=== PATIENT | female | born 1995 | race Two or more races ===

== ENCOUNTER 2024-10-11 23:32 | Observation (INO) | payer OTHER ==
--- NOTE | 2024-10-12 01:36 | DVHDS2 ---
Physician Discharge Progress N Final Diagnosis: IUP at 20w 3days h/o preEclampsia 2017 h/o - section 2017 H/o Cholscystectomy 2021 Normal Blood Pressure Range Operations or Procedures: Operations or Procedures Ms Camargo, a 29yo G2,1001 with EDC of , EGA 20w 3d presents to the place and reports that she checked her BP at home and it was high 138/75. Feels movement, no contractions, no leakage of fluid, no vaginal bleeding, no vision changes or epigastric pain. She reports she has h/o preeclampsia and primary C- section in 2018. Receiving care in [facility]. Plan was for her to have an appointment scheduled with a [facility] doctor but has not received a call for the appointment. Last appointment with OB doctor was 10/07/24. Taking PNV and low dose aspirin. She was accompanied by her boy-friend O: VSS A&O x3, not in acute distress Respiration unlabored No CVA tenderness Abdomen palpate soft Extremities: no edema DTR +2/+2 Trace Proteinuria BP Trends as follows:118/59, 109/57, 101/54, 99/51, 101/50, 105/54mmHg FHR with Doppler:135bpm No contraction noted on monitor, none palpated nor felt by pt A: Normal Blood Pressure P: Discharge home Patient advised to call her own doctor's office today for f/u on this visit and to schedule all necessary appointment 2nd trimester emergency signs and symptoms reviewed; advised to seek healthcare if any. Condition on Discharge: Good Disposition: Home Discharge Instructions: Diet: Regular Diet comment: Routine regular diet rich in fiber, protein, with adequate fluid intake. Activity: No Restrictions, As Tolerated Activity comment: Balance activities with rest period Follow Up/Referral: Patient advised to call her own doctor's office today for f/u on this visit and to schedule all necessary appointment 2nd trimester emergency signs and symptoms reviewed; advised to seek healthcare if any. Medications: Continue vitamin and low dose ASA Follow Up Care: Discharge Statement: Patient advised to call her own doctor's office today for f/u on this visit and to schedule all necessary appointment 2nd trimester emergency signs and symptoms reviewed; advised to seek healthcare if any. "Patient was advised to return to the ER or call 911 if any headaches, dizziness, shortness of breath, chest pain, abdominal pain, bleeding, fevers, or worsening of medical condition. Patient was counseled about treatment plan, medications, possible side effects, patientverbalized understanding. All questions were answered to the best of my ability. This discharge took greater then 30 minutes in planning, reviewing documentation, counseling the patient, and discussing with other team members." Visit Coding OBGYN Date of Service: October 12, 2024 Billing Provider: NICOLE SELLERS CNM CAMP COUNSELOR Common Visit Codes: 70947-WZN/OBS SAME DATE (MOD) NICOLE SELLERS CNM October 12, 2024 01:36
== END 2024-10-12 01:15 | disposition home or self-care (01) ==
LOC: LDRP 23:32
PROVIDERS: ADMIT Obstetrics & Gynecology; ATTEND Obstetrics & Gynecology
DX: O13.2 Gestational [pregnancy-induced] hypertension without significant proteinuria, second trimester (principal); Z98.890 Other specified postprocedural states; Z79.899 Other long term (current) drug therapy; Z3A.20 20 weeks gestation of pregnancy
CPT/HCPCS: 81002

== ENCOUNTER 2024-12-12 19:19 | Observation (INO) | payer OTHER ==
[~2024-12-12] VITALS: Ht 162.6 cm; Wt 94.8 kg
[2024-12-12] MEDS ORDERED: PREN-96 PO (19:44)
[2024-12-12] MEDS ORDERED: FAMOTIDINE INJECTION 40 MG in SODIUM CHL 0.9% 100 ML IV ONE (19:45)
[2024-12-12] MEDS ORDERED: LACTATED RINGER'S 1,000 ML IV ONE (20:15)
[2024-12-12 20:33] LABS: Urine Protein, UAD 1+ (Negative)
[2024-12-12] MEDS: FAMOTIDINE (10MG/ML) 2ML VL IV ONE (20:41)
--- NOTE | 2024-12-13 23:09 | DVHDS2 ---
Discharge Summary Date of Admission Dec 12, 2024 at 19:19 Date of Discharge: Dec 12, 2024 Admitting Diagnosis acid reflux Labs/Diagnostic Data: Laboratory Results Test 12/12/24 20:08 Urine Color Yellow (Yellow) Urine Clarity Turbid (Clear) Urine pH 6.0 (5.0-9.0) Urine Specific [place] 1.031 (1.001-1.035) Urine Protein 1+ (Negative) Urine Ketones 2+ (Negative) Urine Blood Negative /uL (Negative) Urine Nitrite Negative (Negative) Urine Bilirubin Negative (Negative) Urine Urobilinogen Normal mg/dL (Negative) Urine Leukocyte Esterase 3+ /uL (Negative) Urine RBC 5 /hpf (0 - 4) Urine Microscopic WBC 6 /HPF (0-5) Urine Squamous Epithelial Cells Mod /hpf (<5) Urine Calcium Oxalate Crystals Few (None Seen) Urine Bacteria Few /hpf (None Seen) Urine Mucus Few (None Seen) Urine Glucose Normal mg/dL (Normal) Brief Hx & Hospital Course: acid reflux treated , NST reassuring fht performed Condition at Discharge: Good Final Diagnosis/Problems List acid reflux, Discharge Disposition: Home Discharge Instruct/Medications Diet: Consistent carbohydrate Activity: No Restrictions, As Tolerated Scheduled Vit W/ Ferrous Fumara ( One Daily), 1 TAB PO DAILY, (Reported) Discharge Statement: "Patient was advised to return to the ER or call 911 if any headaches, dizziness, shortness of breath, chest pain, abdominal pain, bleeding, fevers, or worsening of medical condition. Patient was counseled about treatment plan, medications, possible side effects, patientverbalized understanding. All questions were answered to the best of my ability. This discharge took greater then 30 minutes in planning, reviewing documentation, counseling the patient, and discussing with other team members." ASSESSMENT ASSESSMENT Assessment Visit Coding OBGYN Date of Service: Dec 12, 2024 Billing Provider: MARKUS MELGOZA DO PHOTOGRAMMETRIC ENGINEER Common Visit Codes: 88538-BWPZHMHFRC INP/OBS CARE(HIGH), 97728-WFA/OBS SAME DATE (LOW), 36155-XAA/OBS SAME DATE (MOD) PHOTOGRAMMETRIC ENGINEER Procedure Codes: 07534-63- NON-STRESS TEST MARKUS MELGOZA DO Dec 13, 2024 23:09
== END 2024-12-12 21:28 | disposition home or self-care (01) ==
LOC: LDRP 19:19
PROVIDERS: ADMIT Obstetrics & Gynecology; ATTEND Obstetrics & Gynecology
DX: O99.613 Diseases of the digestive system complicating pregnancy, third trimester (principal); K21.9 Gastro-esophageal reflux disease without esophagitis; Z3A.29 29 weeks gestation of pregnancy; Z79.899 Other long term (current) drug therapy; Z98.890 Other specified postprocedural states
CPT/HCPCS: 59025; 81001; 81002; 94760; 96374; G0378; J3490

== ENCOUNTER 2025-03-08 18:37 | Inpatient (IN) | payer OTHER ==
[~2025-03-08] VITALS: Ht 162.6 cm; Wt 92.2 kg
[~2025-03-08 18:37] MED LIST: PREN-96 PO
[2025-03-08] MEDS ORDERED: SODIUM CHLORIDE 0.9% 1,650 ML IV ONE (19:00)
[2025-03-08] MEDS: ACETAMINOPHEN 325 MG TAB PO ONE (19:00)
[2025-03-08] MEDS ORDERED: LACTATED RINGER'S 1,650 ML IV ONE (19:15)
--- NOTE | 2025-03-08 19:16 | ED.PDOC ---
SOB-HPI HPI Comments 29 y/o F presents with c/c of shortness of breath and fever. Patient has 1 day history of symptoms. She reports on having no associative chest pain, cough, congestion, or further acute symptoms. She had a , recently, on 02/14 at an outside hospital facility in [place], [place] ([id number]). Child from procedure is healthy. Patient was discharged the next day. She has been having vaginal spotting since discharge from the hospital. Patient also mentions an episode of chills and fever a few days ago. Chills and fever returned, again, today. Patient took 1 dose of 600mg Ibuprofen prior to ED visit, earlier. MACEY: TACHY,FEVER, SOB POST C SECTION 29-year-old female presents to emergency department for one day history of shortness of breath with the associated fever at home. Patient is status post on 02/14 at an outside facility. Patient has a healthy child. Patient was discharged home from the hospital the next day. Patient has been having normal vaginal spotting since her discharge from the hospital. She experienced some chills and fever few days ago which has resolved but then came back again today. Temperature at 101.4. Patient took some ibuprofen earlier today. Her main concern today is her shortness of breath with the exertion. Denies any abdominal pain or pelvic pain. HPI: Poor Historian. Past Medical History: Anemia Past Surgical History: 2 C-sections, cholecystectomy, right hip surgery REVIEW OF SYSTEMS: CONSTITUTIONAL: Denies acute: , diaphoresis, , generalized weakness. HEAD: Denies acute: headache, photophobia Eyes: Denies acute: Double vision, vision loss, eye pain, eye discharge. EARS: Denies acute: tinnitus, hearing loss, ear discharge, ear pain, THROAT: Denies acute: sore throat, swelling, difficulty swallowing , pain with swallowing, change in voice. NECK: Denies acute: neck pain, neck swelling, stiff neck. HEART: Denies acute : chest pain, palpitations, LUNGS: Denies acute: , wheezing, cough, hemoptysis ABDOMEN: Denies acute: abdominal pain, Nausea, Vomiting, diarrhea, melena , hematemesis, hematochezia SKIN: Denies acute: rash, redness, lesions, itchiness. EXTREMITIES: Denies acute: calf pain, numbness, tingling, weakness, denies pain in extremity. Denies acute: Low back pain. Neuro: Denies acute: focal neurological deficit, motor or sensory focal neurological deficit, tremors, seizure like activity, confusion, dizziness, change in mental status, loss of bowel or bladder function, cauda equina like symptoms. : Denies acute: dysuria, hematuria, flank pain, increase in urinary frequency. PSYCH: Denies acute: hallucination, suicidal ideation, homicidal ideation. FEMALE: Denies acute: foul odor, unusual discharge. PHYSICAL EXAM: General: ----mild----acute distress, awake and alert. Head: normocephalic, atraumatic. Neck: supple, trachea is midline, no swelling. Throat: Normal phonation. Eyes:, no erythema, no purulent discharge, no proptosis, no icterus. Heart: regular rate, tachycardic, no significant murmur appreciated. Lungs: no apparent respiratory distress, Able to speak in full sentences. No wheezing, no rhonchi, no crackles. No stridors Clear to auscultation bilaterally. Abdomen: non tender to palpation, non distended, soft, no guarding, no rebound, + bowel sounds. Neuro: Awake, Alert, oriented to name, self, situation, follows commands GCS=15. Speech is normal. Skin: no petechia, no purpura, no cyanosis, non-pale, not jaundice. Lower extremities: --no - Pitting edema no deformity, no focal swelling, no calf TTP. Makes eye contact. moves all four extremities. Face: no apparent facial droop. Ambulating in the ED independently. ED COURSE: DISCLAIMER: This medical document was created using an electronic medical record system with voice recognition software and computerized dictation system. Although this document has been carefully reviewed, there might still be some phonetic and typographical errors. Occasional wrong-word or "sound-alike" substitutions may have occurred due to the inherent limitations of voice recognition software. These areas are purely typographical due to imperfections of the software programs and do not reflect any compromise in the patient's medical care. Please read the chart carefully and recognize, using context, where these substitutions have occurred. Chief Complaint: Shortness of Breath Time Seen by MD: 18:51 Information Source: Patient Mode of Arrival: Ambulatory EKG EKG : Pulse Rate (adult): 90 [place]: Normal Cardiac Rhythm: NSR Block: None Hypertrophy: None ST: Normal Was a procedure done? Was a procedure done?: No Differential Dx Differential Diagnosis: Other (DDx include ACS, unstable angina, anxiety, PE, pneumothroax, neoplasm, cardiac ischemia, COPD, asthma, CHF, pleural effusion, tobacco abuse, pneumonia, hypoxia, hypercapnia, anemia., infection/sepsis., pulmonary edema. Asthma, Cardiac tamponade, infection.) X-Ray, Labs, Meds, VS Vital Signs Date Time Temp Pulse Resp B/P (MAP) Pulse Ox O2 Delivery O2 Flow Rate FiO2 03/08/25 23:00 104 21 97/79 (85) 96 03/08/25 22:42 90 03/08/25 22:15 98.7 03/08/25 21:22 107 16 126/71 (89) 97 03/08/25 20:27 120 14 96 Room Air* 0 21 03/08/25 20:25 98.3 120 14 155/124 (134) 96 98.3 03/08/25 20:18 155/124 03/08/25 19:00 98.3 03/08/25 18:42 101.6 118 22 144/75 96 101.6 Lab Test 03/08/25 22:35 03/08/25 21:13 03/08/25 21:04 03/08/25 19:33 Range/Units Troponin I High Sensitivity < 3 L < 3 L < 3 L </=34 ng/L Urine Color Yellow Yellow Urine Clarity Clear Clear Urine pH 5.5 5.0-9.0 Urine Specific [place] 1.026 1.001-1.035 Urine Protein 1+ H Negative Urine Ketones Negative Negative Urine Blood Negative Negative /uL Urine Nitrite Negative Negative Urine Bilirubin Negative Negative Urine Urobilinogen Normal Negative mg/dL Urine Leukocyte Esterase Negative Negative /uL Urine RBC 1 0 - 4 /hpf Urine Microscopic WBC 5 0-5 /HPF Urine Squamous Epithelial Cells Few <5 /hpf Urine Bacteria None seen None Seen /hpf Urine Mucus Few None Seen Urine Glucose Normal Normal mg/dL White Blood Count 10.8 4.4-10.8 10^3/uL Red Blood Count 3.66 L 4.0-5.20 10^6/uL Hemoglobin 10.2 L 12.2-16.2 g/dL Hematocrit 31.0 L 36.0-46.0 % Mean Corpuscular Volume 84.5 80.0-100.0 fL Mean Corpuscular Hemoglobin 27.9 L 28.0-32.0 pg Mean Corpuscular Hemoglobin Concent 33.0 32.0-36.0 g/dL Red Cell Distribution Width 16.5 H 11.8-14.3 % Platelet Count 401 140-450 10^3/uL Mean Platelet Volume 7.3 6.9-10.8 fL Neutrophils (%) (Auto) 84.2 H 37.0-80.0 % Lymphocytes (%) (Auto) 8.8 L 10.0-50.0 % Monocytes (%) (Auto) 5.5 0.0-12.0 % Eosinophils (%) (Auto) 1.2 0.0-7.0 % Basophils (%) (Auto) 0.3 0.0-2.0 % Neutrophils # (Auto) 9.1 H 1.6-8.6 10 ^3/uL Lymphocytes # (Auto) 1.0 0.4-5.4 10 ^3/uL Monocytes # (Auto) 0.6 0-1.3 10 ^3/uL Eosinophils # (Auto) 0.1 0-0.8 10 ^3/uL Basophils # (Auto) 0 0-0.2 10 ^3/uL Nucleated Red Blood Cells 0.2 % Prothrombin Time 10.9 9.3-11.8 sec Prothrombin Time INR 1.03 0.9-1.15 Activated Partial Thromboplast Time 28.5 24.5-34.5 SEC Sodium Level 141 136-145 mmol/L Potassium Level 3.4 L 3.5-5.1 mmol/L Chloride Level 106 98-107 mmol/L Carbon Dioxide Level 24 20-31 mmol/L Anion Gap 11 5-15 Blood Urea Nitrogen 10 9-23 mg/dL Creatinine 0.78 0.550-1.02 mg/dL Glomerular Filtration Rate Calc 105 >90 mL/min BUN/Creatinine Ratio 12.8 10.0-20.0 Serum Glucose 89 74-106 mg/dL Lactic Acid Level 1.3 0.4-2.0 mmol/L Calcium Level 8.7 8.7-10.4 mg/dL Total Bilirubin 0.3 0.2-1.0 mg/dL Aspartate Amino Transferase (AST) 22 13-40 U/L Alanine Aminotransferase (ALT) 17 7-40 U/L Alkaline Phosphatase 128 H 46-116 U/L B-Type Natriuretic Peptide 23.07 0-100 pg/mL Total Protein 7.9 5.7-8.2 g/dL Albumin 4.2 3.2-4.8 g/dL Microbiology Date/Time Source Procedure Growth Status 03/08/25 19:33 Blood Blood Culture - Preliminary NO GROWTH AFTER 72 HOURS OF INCUBATION. Resulted 03/08/25 19:23 Blood Blood Culture - Preliminary NO GROWTH AFTER 72 HOURS OF INCUBATION. Resulted [place] [address] Ph: [phone] DIAGNOSTIC IMAGING Diagnostic Imaging Report : [id number] Signed PATIENT: REYNA CHOUDHURY ACCT: [id number] UNIT: [id number] : 1995 LOC: ER ROOM / BED: / AGE / SEX: 29 / F ADM STATUS: REG ER SERVICE 18 ORDERING PHYSICIAN: KENYETTA PRAKASH DO PROCEDURE(s): CTACH - CT ANGIO CHEST CONTRAST REASON: sob post c section ORDER NUMBER(s): [id number], ACCESSION NUMBER(s): [id number] EXAM: CT CT ANGIO CHEST CONTRAST HISTORY: sob post c section TECHNIQUE: CT angiogram was performed. CT scans at this facility use dose modulation, iterative reconstruction, and/or weight based dosing when appropriate to reduce radiation dose to as low as reasonably achievable. Coronal and sagittal reformations and maximum intensity projection images were created from the transaxial source data by the fiber technologist and workstation, as well as 3-D volume rendered images with MIPs. COMPARISON: None FINDINGS: [LOWER NECK]: Unremarkable [LYMPH NODES/MEDIASTINUM]: No abnormal lymph nodes by CT size criteria [CARDIOVASCULAR]: Normal cardiac size. No pericardial effusion. No aneurysmal dilatation of the great vessels. No significant coronary artery calcifications. [PULMONARY ARTERIES]: Significant pulmonary arterial filling defect located of the distal right interlobar artery to segmental and subsegmental right lower lobe pulmonary arteries in its entirety. Prominence of the main pulmonary artery suggestive of pulmonary hypertension. Minimally elevated right heart pressures. Or right ventricular heart strain at this time. [UPPER ABDOMEN]: Cholecystectomy. [MUSCULOSKELETAL]: No acute fracture or aggressive focal osseous lesion. [CHEST WALL]: Unremarkable. [LUNG PARENCHYMA/PLEURAL SPACE]: Peribronchovascular and alveolar opacity in the right lower lobe without definitive bubbly lucencies at this time likely related to hypoperfusion and subsequent hypo ventilation of the right lower lobe. No pleural effusion or pneumothorax. IMPRESSION: 1. Significant pulmonary embolism in the right lower lobe pulmonary arterial system. 2. No evidence of right ventricular heart strain at this time. 3. Hypoperfusion and subsequent hypo ventilation of the right lower lobe. ATED BY: HERB HINKLE MD DICTATED DATE/TIME: 03/08/252103 SIGNED BY: HERB HINKLE MD SIGNED DATE/TIME: 03/08/252103 CC: [place] [address] Ph: [phone] DIAGNOSTIC IMAGING Diagnostic Imaging Report : [id number] Signed PATIENT: REYNA CHOUDHURY ACCT: [id number] UNIT: [id number] : 1995 LOC: ER ROOM / BED: / AGE / SEX: 29 / F ADM STATUS: REG ER SERVICE 04 ORDERING PHYSICIAN: KENYETTA PRAKASH DO PROCEDURE(s): CXRP - CHEST PORTABLE REASON: SOB ORDER NUMBER(s): [id number], ACCESSION NUMBER(s): [id number] CHEST RADIOGRAPH Indication: SOB Technique: Single frontal view of the chest was obtained Comparison: None FINDINGS: Lines and Tubes: None Lungs: Airspace disease and atelectasis in the right lower lobe. Pleura: No effusion. No pneumothorax. Cardiomediastinal contours: Unremarkable Bones: No acute osseous abnormality. IMPRESSION: 1. Right lower lobe airspace disease and atelectasis. ATED BY: LG CAMPOS Jr., DO DICTATED DATE/TIME: 03/08/252143 SIGNED BY: LG CAMPOS Jr., DO SIGNED DATE/TIME: 03/08/254 CC: Time of 1ST Reevaluation: 19:21 Reevaluation 1ST: Unchanged Time of 2ND Reevaluation: 21:26 (Case discussed with the Interventional Radiology team Andres Wayne and sent text to interventional radiologist Dr. Esteban Washington. I also spoke with the OB Gyne doctor on the phone Dr. Courtney. She said that is okay to anticoagulate and treat the pulmonary embolus. ) Patient Education/Counseling: Diagnosis, Treatment Family Education/Counseling: No Family Present Comments MDM: patient presented with the above HPI.-shortness of breath and fever----workup was initiated. patient was found with the above mentioned diagnosis. the following medications were ordered: please refer to order lists of meds and tests obtained by myself Dr. Prakash. Patient ED course and VS have been stabilized. Patient has been reassessed in the ED and remained in a stable condition. Pertinent incidental findings were discussed with the patient and/or family. Patient/family voices understanding and is agreeable with plan. Patient has been observed in the ED adequate length of time to insure improvement/stability. Escalation of care considered: Consideration of escalation to observation or admission Sepsis workup sepsis bundle initiated. Patient was found with pulmonary embolus. Interventional Radiology consulted Dr. Washington. OB Gyne were consulted. Heparin initiated. Patient was ADMITTED to the medicine team for further evaluation and treatment of their presentation. All the reports of any imaging studies that were ordered by myself were reviewed by myself. SEPSIS Sepsis Screen Date sepsis recognized/suspect: Mar 08, 2025 Time Sepsis recognized/suspect: 1841 Recent Procedure: Yes On Antibiotic Therapy: No Respiratory Rate >20: Yes Heart Rate >90: Yes Temp<36 C (96.8 F) or >38.3 C: Yes SBP <90 or MAP <65 mmHG: No New Acute Mental Status Change: No Is the patient on CPAP, BIPAP,: No Physician Orders Blood Culture (03/08/25 18:52) Sepsis Reassessment After Flui (03/08/25 18:53) Initiate Sepsis Protocol (03/08/25 18:52) Pelvic (03/08/25 18:52) Chest Portable (03/08/25 19:05) Accucheck (03/08/25 19:05) Notify Md If Map <65 Or Bp<90 (03/08/25 19:05) If Map<65 Start Vasopressor (03/08/25 19:05) Sepsis Reassesment After Fluid (03/08/25 20:05) Ct Angio Chest Contrast (03/08/25 19:19) * Radiologist Consult (03/08/25 21:19) Vital Signs Date Time Temp Pulse Resp B/P (MAP) Pulse Ox O2 Delivery O2 Flow Rate FiO2 03/08/25 23:00 104 21 97/79 (85) 96 03/08/25 22:42 90 03/08/25 22:15 98.7 03/08/25 21:22 107 16 126/71 (89) 97 03/08/25 20:27 120 14 96 Room Air* 0 21 03/08/25 20:25 98.3 120 14 155/124 (134) 96 98.3 03/08/25 20:18 155/124 03/08/25 19:00 98.3 03/08/25 18:42 101.6 118 22 144/75 96 101.6 Laboratory Tests Test 03/08/25 19:33 Lactic Acid Level 1.3 mmol/L (0.4-2.0) White Blood Count 10.8 10^3/uL (4.4-10.8) Departure 1 Departure Time of Disposition: 21:03 Impression: Primary Impression: Sepsis Additional Impression: Pulmonary embolus Disposition: ADMITTED INPATIENT Admit to: [facility] Condition: Guarded Discharged With: Self Critical Care Note Critical Care Time?: Yes (>90min-critical care time only) Heart Score Heart Score: Heart Score Response (Comments) Value History Slightly Suspicious 0 EKG Normal 0 Age <45 0 Risk Factors 1 or 2 risk factors 1 Troponin Normal limit 0 Total 1 I personally scribed for KENYETTA PRAKASH DO ([email or web address]) on 03/08/25 at 19:41. Electronically submitted by Marko Porter ([email or web address]). I personally scribed for KENYETTA PRAKASH DO ([email or web address]) on 03/08/25 at 21:16. Electronically submitted by Marko Porter ([email or web address]). I personally scribed for KENYETTA PRAKASH DO ([email or web address]) on 03/08/25 at 21:56. Electronically submitted by Marko Porter ([email or web address]). I personally scribed for KENYETTA PRAKASH DO ([email or web address]) on 03/09/25 at 01:49. Electronically submitted by Marko Porter ([email or web address]). I personally scribed for KENYETTA PRAKASH DO ([email or web address]) on 03/09/25 at 05:08. Electronically submitted by Marko Porter ([email or web address]). I personally scribed for KENYETTA PRAKASH DO ([email or web address]) on 03/09/25 at 05:35. Electronically submitted by Marko Porter ([email or web address]). KENYETTA PRAKASH DO Mar 08, 2025 19:16
[2025-03-08 19:59] LABS: Hematocrit 31.0 % (36.0-46.0); Hemoglobin 10.2 g/dL (12.2-16.2); Mean Corpuscular Hemoglobin 27.9 pg (28.0-32.0); Mean Corpuscular Volume 84.5 fL (80.0-100.0); Nucleated Red Blood Cells % 0.2 %
[2025-03-08 20:12] LABS: INR 1.03 (0.9-1.15); Partial Thromboplastin Time 28.5 SEC (24.5-34.5); Prothrombin Time 10.9 sec (9.3-11.8)
[2025-03-08 20:15] LABS: Alanine Aminotransferase 17 U/L (7-40); Albumin 4.2 g/dL (3.2-4.8); Anion Gap 11 (5-15); BUN/Creatinine Ratio 12.8 (10.0-20.0); Blood Urea Nitrogen 10 mg/dL (9-23); Carbon Dioxide 24 mmol/L (20-31); Chloride 106 mmol/L (98-107); Glucose 89 mg/dL (74-106); Sodium 141 mmol/L (136-145); Total Protein 7.9 g/dL (5.7-8.2)
[2025-03-08 20:16] LABS: Bilirubin, Total 0.3 mg/dL (0.2-1.0)
[2025-03-08] MEDS: fentaNYL CITRATE 100 MCG/2 ML VL IV ONE (20:18)
[2025-03-08] MEDS: LACTATED RINGER'S 1,650 ML IV ONE (20:18)
--- NOTE | 2025-03-08 20:20 | DVH ---
INDICATION: SOB TECHNIQUE: Multiple real-time grayscale transabdominal sonographic images along with color and duplex Doppler of the uterus and ovaries were obtained. COMPARISON: None FINDINGS: The uterus measures 9.13 x 7.07 x 6.83 cm. The endometrial stripe measures 8.57 mm. The right ovary measures 2.08 x 1.91 x 2.12 cm. Volume of the right ovary is 4.48 cc The left ovary measures 1.69 x 1.7 by 1.63 cm. Volume of the left ovary is 2.53 cc Subsequent color and duplex Doppler interrogation of the ovaries demonstrated symmetric vascular flow to both ovaries, though this does not exclude the possibility of torsion due to the dual blood suppl y. IMPRESSION: 1. Small amount of fluid in the endometrial canal. 2. Small amount of fluid in the cul-de-sac.
[2025-03-08 20:27] VITALS: PULSE 120; RESP 14; O2SAT 96
[2025-03-08] MEDS: IOHEXOL 350 MG/ML 100ML IJ ONE (20:27)
[2025-03-08] MEDS ORDERED: CEFEPIME 1GM/50ML 50 ML IV ONE (20:30)
--- NOTE | 2025-03-08 21:06 | DVH ---
EXAM: CT CT ANGIO CHEST CONTRAST HISTORY: sob post c section TECHNIQUE: CT angiogram was performed. CT scans at this facility use dose modulation, iterative recon struction, and/or weight based dosing when appropriate to reduce radiation dose to as low as reasonab ly achievable. Coronal and sagittal reformations and maximum intensity projection images were created from the transaxial source data by the medical technologist prn and workstation, as well as 3-D volume render ed images with MIPs. COMPARISON: None FINDINGS: [LOWER NECK]: Unremarkable [LYMPH NODES/MEDIASTINUM]: No abnormal lymph nodes by CT size criteria [CARDIOVASCULAR]: Normal cardiac size. No pericardial effusion. No aneurysmal dilatation of the great vessels. No significant coronary artery calcifications. [PULMONARY ARTERIES]: Significant pulmonary arterial filling defect located of the distal right inter lobar artery to segmental and subsegmental right lower lobe pulmonary arteries in its entirety. Promi nence of the main pulmonary artery suggestive of pulmonary hypertension. Minimally elevated right hea rt pressures. Or right ventricular heart strain at this time. [UPPER ABDOMEN]: Cholecystectomy. [MUSCULOSKELETAL]: No acute fracture or aggressive focal osseous lesion. [CHEST WALL]: Unremarkable. [LUNG PARENCHYMA/PLEURAL SPACE]: Peribronchovascular and alveolar opacity in the right lower lobe wit hout definitive bubbly lucencies at this time likely related to hypoperfusion and subsequent hypo salud tilation of the right lower lobe. No pleural effusion or pneumothorax. IMPRESSION: 1. Significant pulmonary embolism in the right lower lobe pulmonary arterial system. 2. No evidence of right ventricular heart strain at this time. 3. Hypoperfusion and subsequent hypo ventilation of the right lower lobe.
[2025-03-08 21:12] LABS: Alkaline Phosphatase 128 U/L (46-116); Calcium 8.7 mg/dL (8.7-10.4); Potassium 3.4 mmol/L (3.5-5.1)
--- NOTE | 2025-03-08 21:46 | DVH ---
CHEST RADIOGRAPH Indication: SOB Technique: Single frontal view of the chest was obtained Comparison: None FINDINGS: Lines and Tubes: None Lungs: Airspace disease and atelectasis in the right lower lobe. Pleura: No effusion. No pneumothorax. Cardiomediastinal contours: Unremarkable Bones: No acute osseous abnormality. IMPRESSION: 1. Right lower lobe airspace disease and atelectasis.
[2025-03-08] MEDS: CEFEPIME 1GM/50ML 50 ML IV SCH (22:00)
[2025-03-08 22:06] LABS: Urine Protein, UAD 1+ (Negative)
[2025-03-08] MEDS: HEPARIN SODIUM (PORCINE) 5000 UNITS/ML 1ML VIAL IV ONE ×2 (22:30→23:45)
[2025-03-08] MEDS: HEPARIN DRIP/D5W 100UNITS/ML 250 ML IV SCH (23:15)
[2025-03-08] MEDS ORDERED: NITROGLYCERIN 0.4 MG SL TAB SL PRN (23:15)
[2025-03-08] MEDS ORDERED: HYDROcodone-ACET 5/325MG TAB PO PRN (23:15)
[2025-03-08] MEDS ORDERED: MORPHINE SULFATE INJ 2 MG/ml SYRG IV PRN (23:15)
[2025-03-08] MEDS ORDERED: ACETAMINOPHEN 325 MG TAB PO PRN (23:15)
--- NOTE | 2025-03-08 23:26 | DVHHP2 ---
History of Present Illness Reason for Visit: Chest pain History of Present Illness 29-year-old female presents for evaluation of chest pain or shortness for breath. Patient reports a one day history of developing right-sided chest pain that radiates to her back. She states his symptoms are worse with deep inspiration. She reports undergoing a on 02/14/2025. She also reports having some chills for the past couple of days. No other acute complaints. Past Medical History Anemia and DVT Past Surgical History Cholecystectomy and Family History Noncontributory Smoke: No ALCOHOL: none Drugs: None Lives: with Family Review of Systems Review of Systems Review of systems are currently negative otherwise addressed in HPI. Allergies: Coded Allergies: Sulfamethoxazole w/Trimethoprim (Verified Allergy, Intermediate, 12/12/24) Medications Current Medications Medications Dose Ordered Sig/Jaimee Route Start Time Stop Time Status Last Admin Dose Admin Cefepime HCl 50 ml @ 12.5 mls/hr Q8HR IV 03/08/25 22:00 03/08/25 22:00 12.5 MLS/HR Albuterol 2.5 mg Q6HPRN PRN NEB 03/08/25 23:15 UNV Heparin Sodium/ Dextrose 250 ml @ 16.2 mls/hr [id number] IV 03/08/25 23:15 UNV Acetaminophen/ Hydrocodone Bitart 1 tab Q4HP PRN PO 03/08/25 23:15 UNV Ondansetron HCl 4 mg Q4HP PRN IV 03/08/25 23:15 UNV Acetaminophen 650 mg Q6HP PRN PO 03/08/25 23:15 UNV Morphine Sulfate 2 mg Q4HPRN PRN IV 03/08/25 23:15 UNV Nitroglycerin 0.4 mg Q5MINP PRN SL 03/08/25 23:15 UNV Morphine Sulfate 2 mg Q30M PRN IV 03/08/25 23:15 UNV Exam Vital Signs Vital Signs Date Time Temp Pulse Resp B/P (MAP) Pulse Ox O2 Delivery O2 Flow Rate FiO2 03/08/25 22:42 90 03/08/25 22:15 98.7 03/08/25 21:22 16 126/71 (89) 97 03/08/25 20:27 Room Air* 0 21 Exam Gen: 29-year-old female in mild distress. Skin: Warm, dry, normal color and texture, no rash. HEENT: Normocephalic atraumatic, mucous membranes moist and pink. Neck: Cervical and supraclavicular nodes normal without enlargement, trachea is midline, thyroid gland is normal without masses. Pulmonary: Clear to auscultation and percussion bilaterally. Cardiac: Regular rate and rhythm. No murmur Abdomen: Soft, nontender, nondistended, bowel sounds present all 4 quadrants, no guarding, no rigidity, no organomegaly. Extremities: No cyanosis, clubbing, no edema Neuro: Cranial nerves II through XII grossly intact, normal affect and speech, no focal motor deficits. Labs/Xrays ORDERING PHYSICIAN: KENYETTA PRAKASH DO PROCEDURE(s): CXRP - CHEST PORTABLE REASON: SOB ORDER NUMBER(s): [id number], ACCESSION NUMBER(s): [id number] CHEST RADIOGRAPH Indication: SOB Technique: Single frontal view of the chest was obtained Comparison: None FINDINGS: Lines and Tubes: None Lungs: Airspace disease and atelectasis in the right lower lobe. Pleura: No effusion. No pneumothorax. Cardiomediastinal contours: Unremarkable Bones: No acute osseous abnormality. IMPRESSION: 1. Right lower lobe airspace disease and atelectasis. ATED BY: LG CAMPOS Jr., DO ORDERING PHYSICIAN: KENYETTA PRAKASH DO PROCEDURE(s): CTACH - CT ANGIO CHEST CONTRAST REASON: sob post c section ORDER NUMBER(s): [id number], ACCESSION NUMBER(s): [id number] EXAM: CT CT ANGIO CHEST CONTRAST HISTORY: sob post c section TECHNIQUE: CT angiogram was performed. CT scans at this facility use dose modulation, iterative reconstruction, and/or weight based dosing when appropriate to reduce radiation dose to as low as reasonably achievable. Coronal and sagittal reformations and maximum intensity projection images were created from the transaxial source data by the photonics engineering technologist and workstation, as well as 3-D volume rendered images with MIPs. COMPARISON: None FINDINGS: [LOWER NECK]: Unremarkable [LYMPH NODES/MEDIASTINUM]: No abnormal lymph nodes by CT size criteria [CARDIOVASCULAR]: Normal cardiac size. No pericardial effusion. No aneurysmal dilatation of the great vessels. No significant coronary artery calcifications. [PULMONARY ARTERIES]: Significant pulmonary arterial filling defect located of the distal right interlobar artery to segmental and subsegmental right lower lobe pulmonary arteries in its entirety. Prominence of the main pulmonary artery suggestive of pulmonary hypertension. Minimally elevated right heart pressures. Or right ventricular heart strain at this time. [UPPER ABDOMEN]: Cholecystectomy. [MUSCULOSKELETAL]: No acute fracture or aggressive focal osseous lesion. [CHEST WALL]: Unremarkable. [LUNG PARENCHYMA/PLEURAL SPACE]: Peribronchovascular and alveolar opacity in the right lower lobe without definitive bubbly lucencies at this time likely related to hypoperfusion and subsequent hypo ventilation of the right lower lobe. No pleural effusion or pneumothorax. IMPRESSION: 1. Significant pulmonary embolism in the right lower lobe pulmonary arterial system. 2. No evidence of right ventricular heart strain at this time. 3. Hypoperfusion and subsequent hypo ventilation of the right lower lobe. ATED BY: HERB HINKLE MD Labs Test 03/08/25 22:35 03/08/25 21:04 03/08/25 19:33 Range/Units Urine Color Yellow Yellow Urine Clarity Clear Clear Urine pH 5.5 5.0-9.0 Urine Specific [place] 1.026 1.001-1.035 Urine Protein 1+ H Negative Urine Ketones Negative Negative Urine Blood Negative Negative /uL Urine Nitrite Negative Negative Urine Bilirubin Negative Negative Urine Urobilinogen Normal Negative mg/dL Urine Leukocyte Esterase Negative Negative /uL Urine RBC 1 0 - 4 /hpf Urine Microscopic WBC 5 0-5 /HPF Urine Squamous Epithelial Cells Few <5 /hpf Urine Bacteria None seen None Seen /hpf Urine Mucus Few None Seen Urine Glucose Normal Normal mg/dL White Blood Count 10.8 4.4-10.8 10^3/uL Red Blood Count 3.66 L 4.0-5.20 10^6/uL Hemoglobin 10.2 L 12.2-16.2 g/dL Hematocrit 31.0 L 36.0-46.0 % Mean Corpuscular Volume 84.5 80.0-100.0 fL Mean Corpuscular Hemoglobin 27.9 L 28.0-32.0 pg Mean Corpuscular Hemoglobin Concent 33.0 32.0-36.0 g/dL Red Cell Distribution Width 16.5 H 11.8-14.3 % Platelet Count 401 140-450 10^3/uL Mean Platelet Volume 7.3 6.9-10.8 fL Neutrophils (%) (Auto) 84.2 H 37.0-80.0 % Lymphocytes (%) (Auto) 8.8 L 10.0-50.0 % Monocytes (%) (Auto) 5.5 0.0-12.0 % Eosinophils (%) (Auto) 1.2 0.0-7.0 % Basophils (%) (Auto) 0.3 0.0-2.0 % Neutrophils # (Auto) 9.1 H 1.6-8.6 10 ^3/uL Lymphocytes # (Auto) 1.0 0.4-5.4 10 ^3/uL Monocytes # (Auto) 0.6 0-1.3 10 ^3/uL Eosinophils # (Auto) 0.1 0-0.8 10 ^3/uL Basophils # (Auto) 0 0-0.2 10 ^3/uL Nucleated Red Blood Cells 0.2 % Prothrombin Time 10.9 9.3-11.8 sec Prothrombin Time INR 1.03 0.9-1.15 Activated Partial Thromboplast Time 28.5 24.5-34.5 SEC Sodium Level 141 136-145 mmol/L Potassium Level 3.4 L 3.5-5.1 mmol/L Chloride Level 106 98-107 mmol/L Carbon Dioxide Level 24 20-31 mmol/L Anion Gap 11 5-15 Blood Urea Nitrogen 10 9-23 mg/dL Creatinine 0.78 0.550-1.02 mg/dL Glomerular Filtration Rate Calc 105 >90 mL/min BUN/Creatinine Ratio 12.8 10.0-20.0 Serum Glucose 89 74-106 mg/dL Lactic Acid Level 1.3 0.4-2.0 mmol/L Calcium Level 8.7 8.7-10.4 mg/dL Total Bilirubin 0.3 0.2-1.0 mg/dL Aspartate Amino Transferase (AST) 22 13-40 U/L Alanine Aminotransferase (ALT) 17 7-40 U/L Alkaline Phosphatase 128 H 46-116 U/L B-Type Natriuretic Peptide 23.07 0-100 pg/mL Total Protein 7.9 5.7-8.2 g/dL Albumin 4.2 3.2-4.8 g/dL SEPSIS Sepsis Screen Date sepsis recognized/suspect: Mar 08, 2025 Time Sepsis recognized/suspect: 2312 Recent Procedure: No On Antibiotic Therapy: No Respiratory Rate >20: No Heart Rate >90: Yes Temp<36 C (96.8 F) or >38.3 C: No SBP <90 or MAP <65 mmHG: No New Acute Mental Status Change: No Is the patient on CPAP, BIPAP,: No Physician Orders Blood Culture (03/08/25 18:52) Sepsis Initial Assessment ONCE (03/08/25 18:52) Sepsis Reassessment After Flui (03/08/25 18:53) Initiate Sepsis Protocol (03/08/25 18:52) Troponin-I Hs (03/08/25 21:52) Troponin-I Hs (03/09/25 00:52) Pelvic (03/08/25 18:52) Chest Portable (03/08/25 19:05) Accucheck (03/08/25 19:05) Cefepime 1gm/50ml (Maxipime 1gm/50ml) (03/08/25 22:00) Notify Md If Map <65 Or Bp<90 (03/08/25 19:05) If Map<65 Start Vasopressor (03/08/25 19:05) Sepsis Reassesment After Fluid (03/08/25 20:05) Ct Angio Chest Contrast (03/08/25 19:19) Electrocardigram (03/08/25 19:40) * Radiologist Consult (03/08/25 21:19) Albuterol Medneb (Ventolin Medneb) (03/08/25 23:15) Platelet Monitoring (03/08/25 23:14) Vte Protocol Initiated (03/08/25 23:14) Heparin Per Standardized Proce (03/08/25 23:14) Discontinue All Im Injections (03/08/25 23:14) Heparin Drip/D5w 100units/Ml (03/08/25 23:15) Regular Diet (03/09/25 Breakfast) Admit (03/08/25 23:14) Hydrocodone-Acet 5/325mg Tab ([place] 5/32 (03/08/25 23:15) Ondansetron Hcl (Zofran) (03/08/25 23:15) Complete Blood Count (03/09/25 04:00) Comprehensive Metabolic Panel (03/09/25 04:00) Echo 2d Mode Cardiac Dop (03/08/25 23:14) Condition: Fair (03/08/25 23:14) Acetaminophen Tablet (Tylenol Tablet) (03/08/25 23:15) Bedrest With Bathroom Privileg (03/08/25 23:14) Morphine Sulfate Injection (03/08/25 23:15) Nitroglycerin Sublingual (Ntrostat Subli (03/08/25 23:15) Morphine Sulfate Injection (03/08/25 23:15) Stat Ekg For Chest Pain (03/08/25 23:14) Notify Of Changes From Base (03/08/25 23:14) Retail Selling Specialist For 24 Hours (03/08/25 23:14) Emergency Dysrhythmia Protocol (03/08/25 23:14) Rhythm Strips Once Every Shift (03/08/25 23:14) Oxygen By Nasal Cannula (03/08/25 23:14) Vital Signs Date Time Temp Pulse Resp B/P (MAP) Pulse Ox O2 Delivery O2 Flow Rate FiO2 03/08/25 22:42 90 03/08/25 22:15 98.7 03/08/25 21:22 107 16 126/71 (89) 97 03/08/25 20:27 120 14 96 Room Air* 0 21 03/08/25 20:25 98.3 120 14 155/124 (134) 96 98.3 03/08/25 20:18 155/124 03/08/25 19:00 98.3 03/08/25 18:42 101.6 118 22 144/75 96 101.6 Laboratory Tests Test 03/08/25 19:33 Lactic Acid Level 1.3 mmol/L (0.4-2.0) White Blood Count 10.8 10^3/uL (4.4-10.8) Medications Medications Dose Ordered Sig/Jaimee Route Start Time Stop Time Status Last Admin Dose Admin Acetaminophen 650 mg ONCE ONCE PO 03/08/25 19:00 03/08/25 19:01 DC 03/08/25 19:00 650 MG Cefepime HCl 50 ml @ 12.5 mls/hr Q8HR IV 03/08/25 22:00 03/08/25 22:00 12.5 MLS/HR Fentanyl Citrate 100 mcg ONCE ONCE IV 03/08/25 20:15 03/08/25 20:16 DC 03/08/25 20:18 100 MCG Heparin Sodium (Porcine) 5,000 units ONCE ONCE IV 03/08/25 22:30 03/08/25 22:31 DC 03/08/25 22:30 5,000 UNITS Lactated Ringer's 1,650 ml @ 1,000 mls/hr ONCE ONCE IV 03/08/25 20:15 03/08/25 21:53 DC 03/08/25 20:18 1,000 MLS/HR Assessment/Plan Assessment/Plan Assessment Pulmonary embolus Sirs Questionable pneumonia Plan Admit the patient to telemetry to the hospitalist Heparin drip Radiology consult NPO after midnight Continue treatment per orders. Plan discussed with: Patient My Orders Orders - RASHAD BARNHART Procedure Category Date Status Time Albuterol Medneb PHA 03/08/25 Logged (Ventolin Medneb) 23:15 Platelet Monitoring [facility] 03/08/25 In Process 23:14 Vte Protocol Initiated [facility] 03/08/25 In Process 23:14 Heparin Per [facility] 03/08/25 In Process Standardized Proce 23:14 Discontinue All Im [facility] 03/08/25 In Process Injections 23:14 Heparin Drip/D5w PHA 03/08/25 Logged 100units/Ml 23:15 Regular Diet DIET 03/09/25 Transmitted Breakfast Admit ADMIT 03/08/25 Transmitted 23:14 Hydrocodone-Acet PHA 03/08/25 Logged 5/325mg Tab ([place] 23:15 Ondansetron Hcl PHA 03/08/25 Logged (Zofran) 23:15 Complete Blood Count LAB 03/09/25 Verified 04:00 Comprehensive LAB 03/09/25 Verified Metabolic Panel 04:00 Echo 2d Mode Cardiac US 03/08/25 Logged DOP 23:14 Condition: Fair [facility] 03/08/25 In Process 23:14 Acetaminophen Tablet PHA 03/08/25 Logged (Tylenol Tablet) 23:15 Bedrest With Bathroom [facility] 03/08/25 In Process Privileg 23:14 Morphine Sulfate PHA 03/08/25 Logged Injection 23:15 Nitroglycerin PHA 03/08/25 Logged Sublingual (Ntrostat 23:15 Morphine Sulfate PHA 03/08/25 Logged Injection 23:15 Stat Ekg For Chest [facility] 03/08/25 In Process Pain 23:14 Notify Md Of Changes [facility] 03/08/25 In Process From Base 23:14 Retail Selling Specialist For [facility] 03/08/25 In Process 24 Hours 23:14 Emergency Dysrhythmia [facility] 03/08/25 In Process Protocol 23:14 Rhythm Strips Once [facility] 03/08/25 In Process Every Shift 23:14 Oxygen By Nasal RT 03/08/25 Transmitted Cannula 23:14 Date of Service: Mar 08, 2025 Billing Provider: RASHAD BARNHART Common Visit Codes: [id number] INP/OBS CARE (HIGH) RASHAD BARNHART Mar 08, 2025 23:26
[2025-03-08 23:30] VITALS: BP 126/71; PULSE 90; RESP 16; TEMP 98.7; O2SAT 97
[2025-03-08] MEDS: ONDANSETRON HCL 4 MG/2 ML VIAL IV PRN (23:32)
[2025-03-08] MEDS: MORPHINE SULFATE INJ 2 MG/ml SYRG IV PRN (23:32)
--- NOTE | 2025-03-08 23:37 | CONS ---
Pharmacy Clinical Information: PE INDICATION, H/H=. YED=326, PT=10.9, INT=1.03, PTT=28.5, 7200 UNITS X 1 BOLUS THEN START AT 1600 UNITS/HR=16 ML/HR. NEXT PTT @ 0600. FIDEL SHARMA Mar 08, 2025 23:37
[2025-03-08] MEDS: MORPHINE SULFATE 4 MG/ML SYR/VIAL ONE (23:40)
[2025-03-09] VITALS (21 sets, daily range): BP systolic 119–139; BP diastolic 63–84; PULSE 93–114; RESP 13–46; TEMP 98.1–101.4; O2SAT 91–99
--- NOTE | 2025-03-09 00:27 | ECG ---
[facility] Test Date: 2025-03-08 Test Time: 22:42:14 Pat Name: REYNA CHOUDHURY Department: [facility] ED Patient ID: [id number] Room: 0251T Gender: F Terminal Supervisor: ROSEANNE : 1995 Requested By: KENYETTA PRAKASH Order Number: [id number] Reading MD: Triston Brown Measurements Intervals [place] Rate: 90 P: 64 CA: 170 QRS: 1 QRSD: 88 T: 6 QT: 367 QTc: 449 Interpretive Statements Sinus rhythm Probable left atrial enlargement Low voltage, precordial leads Borderline T abnormalities, anterior leads Electronically Signed On 03-13-2025 20:27:57 PDT by Triston Brown Please click the below link to view image of tracing.
[2025-03-09] MEDS: MORPHINE SULFATE 4 MG/ML SYR/VIAL ONE (01:35)
[2025-03-09] MEDS ORDERED: MORPHINE SULFATE 4 MG/ML SYR/VIAL IV PRN (03:00)
[2025-03-09] MEDS: MORPHINE SULFATE 4 MG/ML SYR/VIAL IV PRN ×3 (03:02→14:27)
[2025-03-09 05:53] LABS: Base Excess -3.5 mmol/L (-2.0-3.0)
[2025-03-09 05:55] LABS: Hematocrit 29.2 % (36.0-46.0); Hemoglobin 9.5 g/dL (12.2-16.2); Mean Corpuscular Hemoglobin 27.7 pg (28.0-32.0); Mean Corpuscular Volume 84.7 fL (80.0-100.0); Nucleated Red Blood Cells % 0.1 %
--- NOTE | 2025-03-09 06:13 | DVH ---
CHEST RADIOGRAPH Indication: SOB Technique: Single frontal view of the chest was obtained COMPARISON: XY CHEST PORTABLE on DOS: 03/08/25, CT CT ANGIO CHEST CONTRAST on DOS: 03/08/25 FINDINGS: Lines and Tubes: None Lungs: Mildly progressive small bilateral pleural effusions with mild right hemidiaphragmatic elevati on. No pneumothorax. Cardiomediastinal contours: Unremarkable Bones: Unremarkable IMPRESSION: 1. Mildly progressive small bilateral pleural effusions with mild right hemidiaphragmatic elevation.
[2025-03-09 06:52] LABS: Alanine Aminotransferase 16 U/L (7-40); Albumin 4.1 g/dL (3.2-4.8); Anion Gap 14 (5-15); BUN/Creatinine Ratio 14.5 (10.0-20.0); Carbon Dioxide 22 mmol/L (20-31); Glucose 98 mg/dL (74-106); Sodium 145 mmol/L (136-145); Total Protein 7.5 g/dL (5.7-8.2)
[2025-03-09 06:53] LABS: Bilirubin, Total 0.4 mg/dL (0.2-1.0)
[2025-03-09 06:56] LABS: Alkaline Phosphatase 127 U/L (46-116); Blood Urea Nitrogen 9 mg/dL (9-23); Calcium 8.4 mg/dL (8.7-10.4); Chloride 109 mmol/L (98-107); Potassium 3.4 mmol/L (3.5-5.1)
[2025-03-09] MEDS: ALBUTEROL SULF 2.5 MG/0.5ML(0.5%) NEB SOLN NEB PRN (08:33)
--- NOTE | 2025-03-09 11:14 | DVHPNRES ---
Progress Note Date Seen: Mar 09, 2025 Resident Creating Document: AISLINN SORIANO RESDIENT Medical Necessity Reason Pt with a Central, PICC or Fol: No Subjective Review of Systems This is a 29-year-old female with past medical history of gestational diabetes, preeclampsia (7 years back), came to the hospital due to chest pain and shortness of breath for 9 hours. Pain is localized at right-sided chest, radiating to the back and right shoulder, stabbing in nature, 10/10 in intensity, worsening with taking deep breaths, lying on the back and improved with sitting up. PMHx: gestational diabetes, preeclampsia (7 years back) PSHx: Had to 2 section (on 02/15/2025, complicated with gestational diabetes), another 7 years back (complicated with preeclampsia, underwent emergency on 31st week) and Cholecystectomy Family history: Not Relevant Social history: Denies smoking, drinks socially, denies any other drug use. Lives with the has been at home. Home medication: Iron Supplement Allergic history: Bactrim Patient seen and examined at the bedside. Patient is complaining of chest pain and shortness of breaths. Objective vital signs Vital Sign Date Time Temp Pulse Resp B/P (MAP) Pulse Ox O2 Delivery O2 Flow Rate FiO2 03/09/25 09:15 105 16 119/63 03/09/25 08:39 98 03/09/25 08:33 Nasal Cannula 2.0 03/09/25 08:33 28 03/09/25 05:00 99.2 99.2 Total Intake and Output 03/08/25 03/08/25 03/09/25 15:00 23:00 07:00 Intake Total 12.5 ml 25.0 ml Balance 12.5 ml 25.0 ml medications Current Medications Medications Dose Ordered Sig/Jaimee Route Start Time Stop Time Status Last Admin Dose Admin Cefepime HCl 50 ml @ 12.5 mls/hr Q8HR IV 03/08/25 22:00 03/09/25 07:34 12.5 MLS/HR Albuterol 2.5 mg Q6HPRN PRN NEB 03/08/25 23:15 03/09/25 08:33 2.5 MG Heparin Sodium/ Dextrose 250 ml @ 16 mls/hr [id number] IV 03/08/25 23:15 03/08/25 23:15 16 MLS/HR Acetaminophen/ Hydrocodone Bitart 1 tab Q4HP PRN PO 03/08/25 23:15 Ondansetron HCl 4 mg Q4HP PRN IV 03/08/25 23:15 03/08/25 23:32 4 MG Acetaminophen 650 mg Q6HP PRN PO 03/08/25 23:15 Nitroglycerin 0.4 mg Q5MINP PRN SL 03/08/25 23:15 Morphine Sulfate 2 mg Q30M PRN IV 03/09/25 03:00 03/09/25 03:02 2 MG Morphine Sulfate 2 mg Q4HPRN PRN IV 03/09/25 03:00 03/09/25 09:15 2 MG Examination General: RASS +1, afebrile, mucosae are moist, in moderate respiratory distress Cardiovascular: Normal S1 and S2. No murmurs, gallops or rubs Respiratory: equal bilateral airway entree. Bilateral lower zone decreased breath sounds GI: Soft, nontender, no organomegaly, normal bowel sounds : Burgess catheter n place, clear yellow urine in collection bag MSK/skin: Mobilization of limbs cannot be evaluated. Skin is dry and warm. IV accesses: Neurological: No apparent motor no sensitive deficits. Pupils are isocoric and reactive laboratory and microbiology Laboratory Tests 03/09/25 05:39 Test 03/09/25 05:39 Range/Units Serum Glucose 98 74-106 mg/dL Labs and/or images reviewed: Labs reviewed by me, Image(s) reviewed by me Problem List/Assessment/Plan Problem List/Assessment/Plan This is a 29-year-old lady with past medical history of gestational diabetes and preeclampsia came to the hospital due to chest pain and shortness of breaths. The patient was admitted on 03/08 due to pulmonary emboli. CARDIOVASCULAR: Segmental Pulmonary emboli * CT angio 03/08, shows pulmonary embolism in the right lower lobe pulmonary arterial system with no evidence of right ventricular heart strain * EKGs shows sinus tachycardia with no significant ST or T-wave changes * Radiology recommended medical management * Plan: Heparin drip, ketorolac, Check echocardiogram RESPIRATORY: Acute hypoxic respiratory failure, likely due to pulmonary emboli * Plan: Heparin drip, pain control and oxygen through nasal cannula INFECTIOUS DISEASE: Sirs positive HEMATOLOGY: Leukocytosis, likely due to pulmonary emboli ENDOCRINE: History of gestational diabetes METABOLIC: Hypokalemia DIET: Regular diet DVT prophylax: Heparin drip GI prophylaxis: Pepcid LINES/DEVICES ETT: Intubated on IV access: 2 peripheral 18 gauge Drips: Heparin drip Disposition: Continue BRAIN status Family: Patients boyfriend updated at the bedside Critical care time: Spent > 68 min, spent in direct critical care, including evaluation, management, review of labs/imaging, and multidisciplinary/family discussions, (excluding any procedures). Case discussed with Dr. Stanford Plan discussed with: Patient, Other My Orders My Orders Orders - AISLINN SORIANO RESCHEPE Procedure Category Date Status Time Drug Screen LAB 03/09/25 Logged 10:28 Date of Service: Mar 09, 2025 Billing Provider: NICOLE STANFORD MD Common Visit Codes: [id number] CARE 30-74 MIN AISLINN SORIANO RESDIENT Mar 09, 2025 11:14 RASHAD STANFORD MD Mar 10, 2025 15:15
[2025-03-09] MEDS: POTASSIUM CHLORIDE 40 MEQ, LIDOCAINE 1% (LOCAL ANESTH.) 4 ML in SODIUM CHL 0.9% 250 ML IV ONE (13:27)
[2025-03-09] MEDS ORDERED: MORPHINE SULFATE INJ 2 MG/ml SYRG IV PRN (13:30)
--- NOTE | 2025-03-09 14:04 | DVHINCON2 ---
Date of service: Mar 09, 2025 Referring Physician hospitalist Reason for Consultation pe and post op cs History of Present Illness pt is admitted for cp and sob.she is s/p rsc on 02/14 at [facility]. pt dosent have any aub or pelvic pain.her ct is c/w pe right lung Past Medical History anemia ,dvt Past Surgical History cs,choleycystectomy Family History na Social History 2 cs,last pap 7yrs ago Allergies: Coded Allergies: Sulfamethoxazole w/Trimethoprim (Verified Allergy, Intermediate, 12/12/24) Home Meds Reported Medications Vit W/ Ferrous Fumara ( One Daily) Daily Tab, 1 TAB PO DAILY, #90 TAB 3 Refills 12/12/24 Current Medications Current Medications Medications (Trade) Dose Ordered Sig/Jaimee Route PRN Reason Start Time Stop Time Status Last Admin Cefepime HCl 50 ml @ 12.5 mls/hr Q8HR IV 03/08/25 22:00 03/09/25 11:17 DC 03/09/25 07:34 Albuterol (Ventolin Medneb) 2.5 mg Q6HPRN PRN NEB SHORTNESS OF BREATH 03/08/25 23:15 03/09/25 08:33 Heparin Sodium/ Dextrose 250 ml @ 16 mls/hr [id number] IV 03/08/25 23:15 03/08/25 23:15 Acetaminophen/ Hydrocodone Bitart ([place] 5/325MG Tab) 1 tab Q4HP PRN PO MODERATE PAIN (4-6 PAIN SCALE) 03/08/25 23:15 Ondansetron HCl (Zofran) 4 mg Q4HP PRN IV NAUSEA / VOMITING 03/08/25 23:15 03/08/25 23:32 Acetaminophen (Tylenol Tablet) 650 mg Q6HP PRN PO PAIN SCALE 1-3 OR TEMP>100.4 03/08/25 23:15 Morphine Sulfate 2 mg Q4HPRN PRN IV SEVERE PAIN (7-10 PAIN SCALE) 03/08/25 23:15 03/09/25 02:52 DC Nitroglycerin (Ntrostat Sublingual) 0.4 mg Q5MINP PRN SL FOR CHEST PAIN 03/08/25 23:15 03/09/25 11:17 DC Morphine Sulfate 2 mg Q30M PRN IV FOR CHEST PAIN 03/08/25 23:15 03/09/25 02:50 DC 03/09/25 01:35 Morphine Sulfate 2 mg Q30M PRN IV CHEST PAIN 03/09/25 03:00 03/09/25 02:51 DC Morphine Sulfate 2 mg Q30M PRN IV CHEST PAIN 03/09/25 03:00 03/09/25 13:28 DC 03/09/25 03:02 Morphine Sulfate 2 mg Q4HPRN PRN IV SEVERE PAIN (7-10 PAIN SCALE) 03/09/25 03:00 03/09/25 11:17 DC 03/09/25 09:15 Morphine Sulfate 2 mg Q3HPRN PRN IV SEVERE PAIN (7-10 PAIN SCALE) 03/09/25 13:30 UNV Review of Systems Constitutional: no fever, chill, weight loss HEENT: no eye pain, no hearing loss, no oral lesion, no scleral icterus Heart: pos chest pain, poschest pressure Lung: pos dyspnea with exertion,pos sob Abdomen: no constipation or diarrhea : no pain with urination, normal appearing urine Musculoskeletal: no joint pain, no muscle pain Neurological: no seizure, no loss of sensation, no weakness in extremities Pysch: no depression, no anxiety Derm: no rash, no jaundice Vital Signs Vital Signs Date Time Temp Pulse Resp B/P (MAP) Pulse Ox O2 Delivery O2 Flow Rate FiO2 03/09/25 13:00 98.6 97 29 129/81 (97) 98 98.6 03/09/25 08:33 Nasal Cannula 2.0 03/09/25 08:33 28 Physical Exam alert and anxious lungs -dec breath sounds CARDIAC:tachy rate breasts -symmetrical,no masses ABDOMEN:soft,incision clean no discharge,no erythema pelvic- scant lochia Labs/Diagnostic Data Labs Test 03/09/25 05:48 03/09/25 05:39 03/08/25 21:04 03/08/25 19:33 Range/Units Blood Gas Specimen Type Arterial Blood Gas Sample Site Right radial Blood Gas Patient Temperature 37.0 Arterial Blood Date Drawn [id number] Arterial Blood pH 7.422 7.350-7.450 Arterial Blood Partial Pressure CO2 31.7 L 32.0-45.0 mmHg Arterial Blood Partial Pressure O2 99.9 83.0-108.0 mmHg Arterial Blood HCO3 20.2 L 21.0-28.0 mmol/L Arterial Blood Oxygen Saturation 96.9 94.0-98.0 % Arterial Blood Base Excess -3.5 L -2.0-3.0 mmol/L Arterial Blood Oxyhemoglobin 96.1 94.0-98.0 % Arterial Blood Carboxyhemoglobin 0.5 0.5-1.5 % Arterial Blood Methemoglobin 0.3 0.0-1.5 % Moo Test Yes Blood Gas Total Hemoglobin 10.30 L 12.0-16.0 g/dL Blood Gas Liter Flow 3.00 Blood Gas Modality Nasal cannula FiO2 % 32.0 White Blood Count 12.7 H 4.4-10.8 10^3/uL Red Blood Count 3.44 L 4.0-5.20 10^6/uL Hemoglobin 9.5 L 12.2-16.2 g/dL Hematocrit 29.2 L 36.0-46.0 % Mean Corpuscular Volume 84.7 80.0-100.0 fL Mean Corpuscular Hemoglobin 27.7 L 28.0-32.0 pg Mean Corpuscular Hemoglobin Concent 32.7 32.0-36.0 g/dL Red Cell Distribution Width 16.6 H 11.8-14.3 % Platelet Count 372 140-450 10^3/uL Mean Platelet Volume 7.1 6.9-10.8 fL Neutrophils (%) (Auto) 79.4 37.0-80.0 % Lymphocytes (%) (Auto) 12.7 10.0-50.0 % Monocytes (%) (Auto) 6.1 0.0-12.0 % Eosinophils (%) (Auto) 1.6 0.0-7.0 % Basophils (%) (Auto) 0.2 0.0-2.0 % Neutrophils # (Auto) 10.1 H 1.6-8.6 10 ^3/uL Lymphocytes # (Auto) 1.6 0.4-5.4 10 ^3/uL Monocytes # (Auto) 0.8 0-1.3 10 ^3/uL Eosinophils # (Auto) 0.2 0-0.8 10 ^3/uL Basophils # (Auto) 0 0-0.2 10 ^3/uL Nucleated Red Blood Cells 0.1 % Activated Partial Thromboplast Time 107.4 *H 24.5-34.5 SEC Sodium Level 145 136-145 mmol/L Potassium Level 3.4 L 3.5-5.1 mmol/L Chloride Level 109 H 98-107 mmol/L Carbon Dioxide Level 22 20-31 mmol/L Anion Gap 14 5-15 Blood Urea Nitrogen 9 9-23 mg/dL Creatinine 0.62 0.550-1.02 mg/dL Glomerular Filtration Rate Calc 123 >90 mL/min BUN/Creatinine Ratio 14.5 10.0-20.0 Serum Glucose 98 74-106 mg/dL Calcium Level 8.4 L 8.7-10.4 mg/dL Magnesium Level 1.9 1.6-2.6 mg/dL Total Bilirubin 0.4 0.2-1.0 mg/dL Aspartate Amino Transferase (AST) 19 13-40 U/L Alanine Aminotransferase (ALT) 16 7-40 U/L Alkaline Phosphatase 127 H 46-116 U/L Troponin I High Sensitivity < 3 L </=34 ng/L Total Protein 7.5 5.7-8.2 g/dL Albumin 4.1 3.2-4.8 g/dL Thyroid Stimulating Hormone (TSH) 0.99 0.55-4.78 uIU/mL Urine Color Yellow Yellow Urine Clarity Clear Clear Urine pH 5.5 5.0-9.0 Urine Specific [place] 1.026 1.001-1.035 Urine Protein 1+ H Negative Urine Ketones Negative Negative Urine Blood Negative Negative /uL Urine Nitrite Negative Negative Urine Bilirubin Negative Negative Urine Urobilinogen Normal Negative mg/dL Urine Leukocyte Esterase Negative Negative /uL Urine RBC 1 0 - 4 /hpf Urine Microscopic WBC 5 0-5 /HPF Urine Squamous Epithelial Cells Few <5 /hpf Urine Bacteria None seen None Seen /hpf Urine Mucus Few None Seen Urine Glucose Normal Normal mg/dL Prothrombin Time 10.9 9.3-11.8 sec Prothrombin Time INR 1.03 0.9-1.15 Lactic Acid Level 1.3 0.4-2.0 mmol/L B-Type Natriuretic Peptide 23.07 0-100 pg/mL Primary Diagnosis pulmonary embolism s/p cs -stable,normal course Plan no further mica miner blasting intervention needed pt needs to have a pap after dc will sign off thank you Plan discussed with: Patient Visit Coding OBGYN Date of Service: Mar 09, 2025 Billing Provider: ROLANDO CABALLERO DO MEDICAL DIRECTOR Common Visit Codes: [id number] OBS CARE (HIGH) MEDICAL DIRECTOR Consultation Codes: [id number] CONSULT <110MIN ROLANDO CABALLERO DO Mar 09, 2025 14:04
[2025-03-09 14:44] LABS: INR 1.09 (0.9-1.15); Partial Thromboplastin Time 51.6 SEC (24.5-34.5); Prothrombin Time 11.5 sec (9.3-11.8)
[2025-03-09 14:57] LABS: Amphetamine Screen, Urine Neg (NEGATIVE); Barbiturate Scree,Urine Neg (NEGATIVE); Benzodiazephine Screen, Urine Neg (NEGATIVE); Cocaine Screen, Urine Neg (NEGATIVE); Opiate Scree,Urine Pos (NEGATIVE)
[2025-03-09 14:59] LABS: Cannabinoid Screen, Urine Neg (NEGATIVE); Phencyclidine Screen, Urine Neg (NEGATIVE)
[2025-03-09] MEDS: KETOROLAC TROMETH 30 MG/ML 1ML VIAL IV ONE (15:17)
--- NOTE | 2025-03-09 15:55 | ECG ---
[facility] Test Date: 2025-03-09 Test Time: 05:34:45 Pat Name: REYNA CHOUDHURY Department: Respiratoy Room: 0251T Gender: F Legal Administrative Secretary: VIKA Alfaro : 1995 Requested By: RASHAD BARNHART Order Number: [id number] Reading MD: Triston Brown Measurements Intervals [place] Rate: 101 P: 54 CO: 165 QRS: 9 QRSD: 90 T: -15 QT: 338 QTc: 439 Interpretive Statements Sinus tachycardia Inferior infarct, age indeterminate Electronically Signed On 03-13-2025 19:39:34 PDT by Triston Brown Please click the below link to view image of tracing.
[2025-03-09] MEDS ORDERED: KETOROLAC TROMETH 30 MG/ML 1ML VIAL IV PRN (17:45)
[2025-03-09] MEDS: PANTOPRAZOLE 40 MG TAB PO ONE (18:11)
[2025-03-09 20:34] LABS: INR 1.15 (0.9-1.15); Prothrombin Time 12.0 sec (9.3-11.8)
[2025-03-09 20:48] LABS: Partial Thromboplastin Time 74.8 SEC (24.5-34.5)
[2025-03-09] MEDS: ACETAMINOPHEN 325 MG TAB PO PRN (22:16)
[2025-03-10] VITALS (27 sets, daily range): BP systolic 106–138; BP diastolic 58–83; PULSE 79–126; RESP 16–38; TEMP 98.5–103.1; O2SAT 88–100
[2025-03-10] MEDS: KETOROLAC TROMETH 30 MG/ML 1ML VIAL IV SCH (00:01)
[2025-03-10 02:50] LABS: Hematocrit 27.5 % (36.0-46.0); Hemoglobin 8.8 g/dL (12.2-16.2); Mean Corpuscular Hemoglobin 27.2 pg (28.0-32.0); Mean Corpuscular Volume 84.8 fL (80.0-100.0); Nucleated Red Blood Cells % 0.1 %
[2025-03-10 03:03] LABS: INR 1.18 (0.9-1.15); Prothrombin Time 12.3 sec (9.3-11.8)
[2025-03-10 03:04] LABS: Partial Thromboplastin Time 90.2 SEC (24.5-34.5)
[2025-03-10 03:06] LABS: Alanine Aminotransferase 11 U/L (7-40); Albumin 3.7 g/dL (3.2-4.8); Alkaline Phosphatase 102 U/L (46-116); Anion Gap 12 (5-15); BUN/Creatinine Ratio 14.8 (10.0-20.0); Bilirubin, Total 0.5 mg/dL (0.2-1.0); Carbon Dioxide 23 mmol/L (20-31); Chloride 107 mmol/L (98-107); Glucose 85 mg/dL (74-106); Sodium 142 mmol/L (136-145); Total Protein 7.1 g/dL (5.7-8.2)
[2025-03-10 03:08] LABS: Blood Urea Nitrogen 8 mg/dL (9-23); Calcium 8.5 mg/dL (8.7-10.4); Potassium 2.9 mmol/L (3.5-5.1)
[2025-03-10] MEDS: HEPARIN DRIP/D5W 100UNITS/ML 250 ML IV SCH ×2 (04:05→12:14)
[2025-03-10] MEDS: POTASSIUM CHL 20MEQ/100ML 100 ML IV SCH (05:52)
[2025-03-10] MEDS: PANTOPRAZOLE 40 MG TAB PO SCH (05:53)
[2025-03-10] MEDS: POTASSIUM EFFERVESENT TAB 25 MEQ PO ONE (06:56)
[2025-03-10] MEDS: POTASSIUM CHLORIDE 40 MEQ, LIDOCAINE 1% (LOCAL ANESTH.) 4 ML in SODIUM CHL 0.9% 250 ML IV ONE (08:42)
--- NOTE | 2025-03-10 09:11 | DVHSR ---
APPROVED REPORT EXAM: Two-dimensional and M-mode echocardiogram with Doppler and color Doppler. Blood Pressure: 129/78 mmHg INDICATION PE RISK FACTORS Height: 5'4", Weight: 198 DIMENSIONS LVDd4.8 (3.8-5.7cm)LA (2D)3.9 (1.9-4.0cm)Aortic Root2.6 (2.0-3.7cm) LVDs3.0 (2.5-4.0cm)LA (MM) (1.9-4.0cm)Aortic Cusp Exc1.8 (1.5-2.0cm) EF (%) 65.0 (55-70%)Rt. Atrium (1.9-4.0cm)Asc. Aorta2.6 cm IVSd0.9 (0.7-1.1cm)RV (D) (1.8-2.4cm) PWd0.7 (0.7-1.1cm) Mitral Valve MitralMitral Stenosis E/A ratio0.02D MVAcm2 Aortic Valve Aortic ValveAortic Stenosis LVOT Diameter2.1 (1.8-2.4cm)Doppler AVAcm2 Tricuspid Valve TR Velocity2.71m/s [id number] Other Information Quality : Technically LimitedRhythm : Technically limited study due to body habitus and sitting up. Conclusion LV EF IS 65% AND IS NORMAL NORMAL VALVES LEFT ATRIUM IS AT UPPER LIMIT OF NORMAL NORMAL RV FUNCTION NO EFFUSION
--- NOTE | 2025-03-10 10:06 | DVH ---
CHEST RADIOGRAPH Indication: Pneumonia Technique: Single frontal view of the chest was obtained Comparison: XY CHEST PORTABLE on DOS: 03/09/25, XY CHEST PORTABLE on DOS: 03/08/25, CT CT ANGIO CHEST C ONTRAST on DOS: 03/08/25, XY CHEST PORTABLE on DOS: 03/09/25 FINDINGS: Lines and Tubes: None Lungs: Mildly progressive small bilateral pleural effusions with mild right hemidiaphragmatic elevati on. No pneumothorax. Cardiomediastinal contours: Unremarkable Bones: Unremarkable IMPRESSION: 1. Mildly progressive small bilateral pleural effusions with mild right hemidiaphragmatic elevation.
--- NOTE | 2025-03-10 10:55 | DVH ---
Bilateral lower extremity venous duplex Clinical History: Pulmonary emboli Comparison: None Findings: Duplex Doppler evaluation of the deep venous systems of both lower extremities from the common femora l veins to the popliteal veins including color Doppler and spectral/pulsed waveform analysis was perf ormed. RIGHT SIDE: The common femoral vein demonstrates appropriate compressibility and waveform variability. There is compressibility/patency of the great saphenous vein at the proximal thigh. The femoral vein demonstrates appropriate compressibility and waveform variability. The deep femoral vein demonstrates appropriate compressibility and waveform variability. The popliteal vein demonstrates appropriate compressibility and waveform variability. There is normal compressibility at the tibioperoneal trunk. LEFT SIDE: The common femoral vein demonstrates appropriate compressibility and waveform variability. There is compressibility/patency of the great saphenous vein at the proximal thigh. The femoral vein demonstrates appropriate compressibility and waveform variability. The deep femoral vein demonstrates appropriate compressibility and waveform variability. The popliteal vein demonstrates appropriate compressibility and waveform variability. There is normal compressibility at the tibioperoneal trunk. IMPRESSION: No right or left femoropopliteal venous thrombosis. If clinical concern/symptoms persist or worsen, short-interval follow-up study is suggested. END IMPRESSION:
[2025-03-10 11:41] LABS: INR 1.13 (0.9-1.15); Partial Thromboplastin Time 38.7 SEC (24.5-34.5); Prothrombin Time 11.8 sec (9.3-11.8)
--- NOTE | 2025-03-10 11:58 | CONS ---
Pharmacy Clinical Information: HEPARIN DRIP, PULMONARY EMBOLISM PROTOCOL @8449 APTT 38.7 - NO BOLUS, INCREASE RATE TO 1200 UNITS/HR NEXT APTT DRAW SCHEDULED @1800 PER RX PROTOCOL CONFIRMED AND READ BACK WITH RN ALISSA ALY [facility] RESIDENT Mar 10, 2025 11:58
[2025-03-10] MEDS: POLYETHYLENE GLYCOL 17 GM PWDR PO PRN (12:28)
--- NOTE | 2025-03-10 17:32 | DVHPNRES ---
Progress Note Date Seen: Mar 10, 2025 Resident Creating Document: AISLINN SORIANO RESDIENT Medical Necessity Reason Pt with a Central, PICC or Fol: No Subjective Review of Systems This is a 29-year-old female with past medical history of gestational diabetes, preeclampsia (7 years back), came to the hospital due to chest pain and shortness of breath for 9 hours. Pain is localized at right-sided chest, radiating to the back and right shoulder, stabbing in nature, 10/10 in intensity, worsening with taking deep breaths, lying on the back and improved with sitting up. PMHx: gestational diabetes, preeclampsia (7 years back) PSHx: Had to 2 section (on 02/15/2025, complicated with gestational diabetes), another 7 years back (complicated with preeclampsia, underwent emergency on 31st week) and Cholecystectomy Family history: Not Relevant Social history: Denies smoking, drinks socially, denies any other drug use. Lives with the has been at home. Home medication: Iron Supplement Allergic history: Bactrim Patient seen and examined at the bedside. Patient is complaining of chest pain and shortness of breaths. Objective vital signs Vital Sign Date Time Temp Pulse Resp B/P (MAP) Pulse Ox O2 Delivery O2 Flow Rate FiO2 03/10/25 16:36 103.1 03/10/25 16:00 119 03/10/25 16:00 29 138/72 (94) 95 03/10/25 09:37 Nasal Cannula 1.0 03/10/25 09:37 24 Total Intake and Output 03/09/25 03/09/25 03/10/25 15:00 23:00 07:00 Intake Total 184.5 ml 104 ml 842 ml Balance 184.5 ml 104 ml 842 ml medications Current Medications Medications Dose Ordered Sig/Jaimee Route Start Time Stop Time Status Last Admin Dose Admin Albuterol 2.5 mg Q6HPRN PRN NEB 03/08/25 23:15 03/09/25 08:33 2.5 MG Ondansetron HCl 4 mg Q4HP PRN IV 03/08/25 23:15 03/08/25 23:32 4 MG Morphine Sulfate 2 mg Q3HPRN PRN IV 03/09/25 13:30 UNV Morphine Sulfate 2 mg Q3HPRN PRN IV 03/09/25 14:30 03/09/25 22:17 2 MG Pantoprazole Sodium 40 mg DAILY@0600 PO 03/10/25 06:00 03/10/25 05:53 40 MG Ketorolac Tromethamine 15 mg Q6HR IV 03/09/25 18:00 03/14/25 17:59 03/10/25 11:42 15 MG Acetaminophen 650 mg Q4HP PRN PO 03/09/25 21:45 03/10/25 16:36 650 MG Levofloxacin/ Dextrose 100 ml @ 100 mls/hr DAILY IV 03/10/25 10:00 03/10/25 12:28 100 MLS/HR Polyethylene Glycol 17 gm DAILYPRN PRN PO 03/10/25 12:00 03/10/25 12:28 17 GM Heparin Sodium/ Dextrose 250 ml @ 12 mls/hr [id number] IV 03/10/25 12:00 03/10/25 16:37 12 MLS/HR Examination General: RASS +1, afebrile, mucosae are moist, in moderate respiratory distress Cardiovascular: Normal S1 and S2. No murmurs, gallops or rubs Respiratory: equal bilateral airway entree. Bilateral lower zone decreased breath sounds GI: Soft, nontender, no organomegaly, normal bowel sounds : Burgess catheter n place, clear yellow urine in collection bag MSK/skin: Mobilization of limbs cannot be evaluated. Skin is dry and warm. IV accesses: Neurological: No apparent motor no sensitive deficits. Pupils are isocoric and reactive laboratory and microbiology Laboratory Tests 03/10/25 02:15 Test 03/10/25 02:15 Range/Units Serum Glucose 85 74-106 mg/dL Microbiology Date/Time Source Procedure Growth Status 03/10/25 09:00 Nose MRSA Screen - Final Complete 03/08/25 19:33 Blood Blood Culture - Preliminary NO GROWTH AFTER 24 HOURS OF INCUBATION. Resulted Problem List/Assessment/Plan Problem List/Assessment/Plan This is a 29-year-old lady with past medical history of gestational diabetes and preeclampsia came to the hospital due to chest pain and shortness of breaths. The patient was admitted on 03/08 due to pulmonary emboli. CARDIOVASCULAR: Segmental Pulmonary emboli * CT angio 03/08, shows pulmonary embolism in the right lower lobe pulmonary arterial system with no evidence of right ventricular heart strain * EKGs shows sinus tachycardia with no significant ST or T-wave changes * Radiology recommended medical management * Plan: Lovenox, ketorolac, Check echocardiogram RESPIRATORY: Acute hypoxic respiratory failure, likely due to pulmonary emboli Atelectasis Possible pneumonia, likely due to Gram-positive/Gram-negative bacteria * Plan: Lovenox, pain control and oxygen through nasal cannula, incentive spirometry INFECTIOUS DISEASE: Sepsis, likely due to pneumonia * Plan: Levofloxacin (03/10) HEMATOLOGY: Pulmonary emboli Ruled out DVT ENDOCRINE: History of gestational diabetes METABOLIC: Hypokalemia DIET: Regular diet DVT prophylax: Heparin drip GI prophylaxis: Pepcid LINES/DEVICES ETT: Intubated on IV access: 2 peripheral 18 gauge Drips: Lovenox Disposition: Continue BRAIN status Family: Patients boyfriend updated at the bedside Critical care time: Spent > 58 min, spent in direct critical care, including evaluation, management, review of labs/imaging, and multidisciplinary/family discussions, (excluding any procedures). Case discussed with Dr. Stanford Plan discussed with: Patient, Spouse, Other My Orders My Orders Orders - AISLINN SORIANO Procedure Category Date Status Time Pantoprazole Tablet PHA 03/10/25 In Process (Protonix Tablet) 06:00 Ketorolac Injection PHA 03/09/25 In Process (Toradol Injection) 18:00 Bilat Lower Dvt US 03/10/25 Resulted 08:39 Incentive Spirometry ORDERS 03/10/25 Transmitted Q 1hr 08:40 Chest Xray 1 View XY 03/10/25 Resulted 08:46 Levofloxacin 500mg PHA 03/10/25 In Process (Levaquin 500mg/ 100m 10:00 Polyethylene Glycol PHA 03/10/25 In Process 17g Powder (Miralax 12:00 Urine Bacterial NELSON 03/10/25 In Process Culture 12:11 Potassium LAB 03/10/25 Logged 18:00 Dietary Evaluation Review Comments: Nutrition Recommendation 1) Ensure High Protein 240ml BID 2) Monitor PO intake, lab values, weight trend, and I/O Expected Outcomes/Goals: To meet >75% estimated needs Fu 3-5 days Date of Service: Mar 10, 2025 Billing Provider: RASHAD STANFORD MD Common Visit Codes: [id number] CARE 30-74 MIN AISLINN SORIANO Mar 10, 2025 17:32 RASHAD STANFORD MD Mar 11, 2025 12:47
[2025-03-10] MEDS: ENOXAPARIN SOD 100 MG/1 ML SYRINGE SC ONE (17:43)
[2025-03-10] MEDS: ACETAMINOPHEN 325 MG TAB PO SCH (17:45)
[2025-03-11] VITALS (28 sets, daily range): BP systolic 111–133; BP diastolic 48–87; PULSE 74–119; RESP 18–35; TEMP 98.6–100.4; O2SAT 92–100
[2025-03-11] MEDS: ACETAMINOPHEN 325 MG TAB PO SCH (00:09)
[2025-03-11 03:46] LABS: Alanine Aminotransferase 11 U/L (7-40); Albumin 3.7 g/dL (3.2-4.8); Alkaline Phosphatase 105 U/L (46-116); Anion Gap 11 (5-15); BUN/Creatinine Ratio 15.7 (10.0-20.0); Carbon Dioxide 23 mmol/L (20-31); Chloride 107 mmol/L (98-107); Glucose 92 mg/dL (74-106); Magnesium 2.0 mg/dL (1.6-2.6); Sodium 141 mmol/L (136-145); Total Protein 7.2 g/dL (5.7-8.2)
[2025-03-11 03:47] LABS: Bilirubin, Total 0.5 mg/dL (0.2-1.0)
[2025-03-11 03:52] LABS: Blood Urea Nitrogen 8 mg/dL (9-23); Calcium 8.6 mg/dL (8.7-10.4); Potassium 3.3 mmol/L (3.5-5.1)
[2025-03-11 03:54] LABS: Hematocrit 26.6 % (36.0-46.0); Hemoglobin 8.8 g/dL (12.2-16.2); Mean Corpuscular Hemoglobin 28.4 pg (28.0-32.0); Mean Corpuscular Volume 85.3 fL (80.0-100.0); Nucleated Red Blood Cells % 0.0 %
[2025-03-11] MEDS: POTASSIUM CHLORIDE 60 MEQ, LIDOCAINE 1% (LOCAL ANESTH.) 6 ML in SODIUM CHL 0.9% 500 ML IV ONE (08:08)
[2025-03-11] MEDS: ENOXAPARIN SOD 100 MG/1 ML SYRINGE SC SCH (09:29)
[2025-03-11] MEDS: IBUPROFEN 400 MG TAB PO SCH (12:00)
--- NOTE | 2025-03-11 19:11 | DVHPNRES ---
Progress Note Date Seen: Mar 11, 2025 Resident Creating Document: AISLINN SORIANO RESDIENT Medical Necessity Reason Pt with a Central, PICC or Fol: No Subjective Review of Systems This is a 29-year-old female with past medical history of gestational diabetes, preeclampsia (7 years back), came to the hospital due to chest pain and shortness of breath for 9 hours. Pain is localized at right-sided chest, radiating to the back and right shoulder, stabbing in nature, 10/10 in intensity, worsening with taking deep breaths, lying on the back and improved with sitting up. PMHx: gestational diabetes, preeclampsia (7 years back) PSHx: Had to 2 section (on 02/15/2025, complicated with gestational diabetes), another 7 years back (complicated with preeclampsia, underwent emergency on 31st week) and Cholecystectomy Family history: Not Relevant Social history: Denies smoking, drinks socially, denies any other drug use. Lives with the has been at home. Home medication: Iron Supplement Allergic history: Bactrim Patient seen and examined at the bedside. Patient is complaining of chest pain and shortness of breaths. Objective vital signs Vital Sign Date Time Temp Pulse Resp B/P (MAP) Pulse Ox O2 Delivery O2 Flow Rate FiO2 03/11/25 18:30 90 24 100 03/11/25 18:24 Nasal Cannula* 1 24 03/11/25 17:00 100.1 100.1 03/11/25 16:14 131/87 (102) Total Intake and Output 03/10/25 03/10/25 03/11/25 15:00 23:00 07:00 Intake Total 381.5 ml 874 ml 400 ml Output Total 900 ml Balance 381.5 ml 874 ml -500 ml medications Current Medications Medications Dose Ordered Sig/Jaimee Route Start Time Stop Time Status Last Admin Dose Admin Albuterol 2.5 mg Q6HPRN PRN NEB 03/08/25 23:15 03/11/25 18:23 2.5 MG Ondansetron HCl 4 mg Q4HP PRN IV 03/08/25 23:15 03/08/25 23:32 4 MG Morphine Sulfate 2 mg Q3HPRN PRN IV 03/09/25 13:30 UNV Pantoprazole Sodium 40 mg DAILY@0600 PO 03/10/25 06:00 03/11/25 06:36 40 MG Levofloxacin/ Dextrose 100 ml @ 100 mls/hr DAILY IV 03/10/25 10:00 03/11/25 09:29 100 MLS/HR Polyethylene Glycol 17 gm DAILYPRN PRN PO 03/10/25 12:00 03/11/25 08:24 17 GM Enoxaparin Sodium 90 mg Q12HR SC 03/11/25 10:00 03/11/25 09:29 90 MG Acetaminophen 650 mg Q6HR PO 03/11/25 00:00 03/11/25 17:42 650 MG Ibuprofen 400 mg Q6HR PO 03/11/25 12:00 03/11/25 17:42 400 MG Examination General: RASS +1, afebrile, mucosae are moist, in moderate respiratory distress Cardiovascular: Normal S1 and S2. No murmurs, gallops or rubs Respiratory: equal bilateral airway entree. Bilateral lower zone decreased breath sounds GI: Soft, nontender, no organomegaly, normal bowel sounds : Burgess catheter n place, clear yellow urine in collection bag MSK/skin: Mobilization of limbs cannot be evaluated. Skin is dry and warm. IV accesses: Neurological: No apparent motor no sensitive deficits. Pupils are isocoric and reactive laboratory and microbiology Laboratory Tests 03/11/25 03:03 Test 03/11/25 03:03 Range/Units Serum Glucose 92 74-106 mg/dL Microbiology Date/Time Source Procedure Growth Status 03/10/25 12:16 Voided Urine Urine Culture - Preliminary Resulted 03/10/25 09:00 Nose MRSA Screen - Final Complete 03/08/25 19:33 Blood Blood Culture - Preliminary NO GROWTH AFTER 48 HOURS OF INCUBATION. Resulted Labs and/or images reviewed: Labs reviewed by me, Image(s) reviewed by me Problem List/Assessment/Plan Problem List/Assessment/Plan This is a 29-year-old lady with past medical history of gestational diabetes and preeclampsia came to the hospital due to chest pain and shortness of breaths. The patient was admitted on 03/08 due to pulmonary emboli. CARDIOVASCULAR: Segmental Pulmonary emboli * CT angio 03/08, shows pulmonary embolism in the right lower lobe pulmonary arterial system with no evidence of right ventricular heart strain * EKGs shows sinus tachycardia with no significant ST or T-wave changes * Radiology recommended medical management * Plan: Lovenox therapeutic dose, ketorolac, Check echocardiogram RESPIRATORY: Acute hypoxic respiratory failure, likely due to pulmonary emboli Atelectasis Possible pneumonia, likely due to Gram-positive/Gram-negative bacteria * Plan: Lovenox therapeutic dose, pain control and oxygen through nasal cannula, incentive spirometry INFECTIOUS DISEASE: Sepsis, likely due to pneumonia * Plan: Levofloxacin (03/10) HEMATOLOGY: Pulmonary emboli Ruled out DVT ENDOCRINE: History of gestational diabetes METABOLIC: Hypokalemia DIET: Regular diet DVT prophylax: Lovenox therapeutic dose GI prophylaxis: Pepcid LINES/DEVICES ETT: Intubated on IV access: 2 peripheral 18 gauge Drips: Lovenox Disposition: Continue BRAIN status Family: Patients boyfriend updated at the bedside Critical care time: Spent > 58 min, spent in direct critical care, including evaluation, management, review of labs/imaging, and multidisciplinary/family discussions, (excluding any procedures). Case discussed with Dr. Stanford Plan discussed with: Other My Orders My Orders Orders - AISLINN SORIANO Procedure Category Date Status Time Acetaminophen Tablet PHA 03/11/25 In Process (Tylenol Tablet) 00:00 Transfer Orders XFER 03/11/25 Transmitted 09:29 Ibuprofen Tablet PHA 03/11/25 In Process (Motrin Tablet) 12:00 Dietary Evaluation Review Comments: Nutrition Recommendation 1) Ensure High Protein 240ml BID 2) Monitor PO intake, lab values, weight trend, and I/O Expected Outcomes/Goals: To meet >75% estimated needs Fu 3-5 days Date of Service: Mar 11, 2025 Billing Provider: RASHAD STANOFRD MD Common Visit Codes: [id number] CARE 30-74 MIN AISLINN SORIANO RESDIIRENE Mar 11, 2025 19:11 RASHAD STANFORD MD Mar 13, 2025 12:01
[2025-03-12] VITALS (10 sets, daily range): BP systolic 113–129; BP diastolic 70–84; PULSE 67–96; RESP 18–20; TEMP 97.9–99.6; O2SAT 91–98
[2025-03-12 06:21] LABS: Hematocrit 27.6 % (36.0-46.0); Hemoglobin 9.1 g/dL (12.2-16.2); Mean Corpuscular Hemoglobin 27.9 pg (28.0-32.0); Mean Corpuscular Volume 84.8 fL (80.0-100.0); Nucleated Red Blood Cells % 0.1 %
[2025-03-12 06:32] LABS: Potassium 4.0 mmol/L (3.5-5.1); Sodium 143 mmol/L (136-145)
[2025-03-12 06:33] LABS: Anion Gap 13 (5-15); Carbon Dioxide 22 mmol/L (20-31)
[2025-03-12 06:38] LABS: BUN/Creatinine Ratio 22.9 (10.0-20.0); Blood Urea Nitrogen 11 mg/dL (9-23); Glucose 82 mg/dL (74-106)
[2025-03-12 06:39] LABS: Calcium 8.5 mg/dL (8.7-10.4); Chloride 108 mmol/L (98-107)
--- NOTE | 2025-03-12 10:12 | DVH ---
EXAM: XY CHEST XRAY 1 VIEW Indication: pain Pneumonia Technique: Single frontal view of the chest was obtained Comparison: XY CHEST XRAY 1 VIEW on DOS: 03/10/25, XY CHEST PORTABLE on DOS: 03/09/25, XY CHEST PORTABL E on DOS: 03/08/25, CT CT ANGIO CHEST CONTRAST on DOS: 03/08/25 FINDINGS: Lines and Tubes: None Lungs: Small bilateral pleural effusions and bibasilar opacities. No pneumothorax. Cardiomediastinal contours: Unremarkable Bones: No acute osseous abnormality. IMPRESSION: Small bilateral pleural effusions and bibasilar opacities.
--- NOTE | 2025-03-12 11:00 | DVHPNRES ---
Progress Note Date Seen: Mar 12, 2025 Resident Creating Document: AISLINN SORIANO RESDIENT Medical Necessity Reason Pt with a Central, PICC or Fol: No Subjective Review of Systems This is a 29-year-old female with past medical history of gestational diabetes, preeclampsia (7 years back), came to the hospital due to chest pain and shortness of breath for 9 hours. Pain is localized at right-sided chest, radiating to the back and right shoulder, stabbing in nature, 10/10 in intensity, worsening with taking deep breaths, lying on the back and improved with sitting up. PMHx: gestational diabetes, preeclampsia (7 years back) PSHx: Had to 2 section (on 02/15/2025, complicated with gestational diabetes), another 7 years back (complicated with preeclampsia, underwent emergency on 31st week) and Cholecystectomy Family history: Not Relevant Social history: Denies smoking, drinks socially, denies any other drug use. Lives with the has been at home. Home medication: Iron Supplement Allergic history: Bactrim Patient seen and examined at the bedside. Patient is complaining of chest pain and shortness of breaths. Objective vital signs Vital Sign Date Time Temp Pulse Resp B/P (MAP) Pulse Ox O2 Delivery O2 Flow Rate FiO2 03/12/25 09:00 98.7 78 18 113/78 (90) 94 98.7 03/12/25 08:11 Room Air* 0 21 Total Intake and Output 03/11/25 03/11/25 03/12/25 15:00 23:00 07:00 Intake Total 546.665 ml 650 ml 240 ml Output Total 300 ml Balance 546.665 ml 650 ml -60 ml medications Current Medications Medications Dose Ordered Sig/Jaimee Route Start Time Stop Time Status Last Admin Dose Admin Albuterol 2.5 mg Q6HPRN PRN NEB 03/08/25 23:15 03/11/25 18:23 2.5 MG Ondansetron HCl 4 mg Q4HP PRN IV 03/08/25 23:15 03/08/25 23:32 4 MG Morphine Sulfate 2 mg Q3HPRN PRN IV 03/09/25 13:30 UNV Pantoprazole Sodium 40 mg DAILY@0600 PO 03/10/25 06:00 03/12/25 05:45 40 MG Levofloxacin/ Dextrose 100 ml @ 100 mls/hr DAILY IV 03/10/25 10:00 03/11/25 09:29 100 MLS/HR Polyethylene Glycol 17 gm DAILYPRN PRN PO 03/10/25 12:00 03/11/25 08:24 17 GM Enoxaparin Sodium 90 mg Q12HR SC 03/11/25 10:00 03/11/25 21:36 90 MG Acetaminophen 650 mg Q6HR PO 03/11/25 00:00 03/12/25 05:45 650 MG Ibuprofen 400 mg Q6HR PO 03/11/25 12:00 03/12/25 05:45 400 MG Examination General: RASS +1, afebrile, mucosae are moist, in moderate respiratory distress Cardiovascular: Normal S1 and S2. No murmurs, gallops or rubs Respiratory: equal bilateral airway entree. Bilateral lower zone decreased breath sounds GI: Soft, nontender, no organomegaly, normal bowel sounds : Burgess catheter n place, clear yellow urine in collection bag MSK/skin: Mobilization of limbs cannot be evaluated. Skin is dry and warm. IV accesses: Neurological: No apparent motor no sensitive deficits. Pupils are isocoric and reactive laboratory and microbiology Laboratory Tests 03/12/25 05:43 Test 03/12/25 05:43 Range/Units Serum Glucose 82 74-106 mg/dL Microbiology Date/Time Source Procedure Growth Status 03/10/25 12:16 Voided Urine Urine Culture - Preliminary Resulted 03/10/25 09:00 Nose MRSA Screen - Final Complete 03/08/25 19:33 Blood Blood Culture - Preliminary NO GROWTH AFTER 72 HOURS OF INCUBATION. Resulted Problem List/Assessment/Plan Problem List/Assessment/Plan This is a 29-year-old lady with past medical history of gestational diabetes and preeclampsia came to the hospital due to chest pain and shortness of breaths. The patient was admitted on 03/08 due to pulmonary emboli. CARDIOVASCULAR: Segmental Pulmonary emboli * CT angio 03/08, shows pulmonary embolism in the right lower lobe pulmonary arterial system with no evidence of right ventricular heart strain * EKGs shows sinus tachycardia with no significant ST or T-wave changes * Radiology recommended medical management * Echo 03/10 shows normal study with LVEF 50% * Plan: Ibuprofen and Eliquis 10 mg b.i.d. RESPIRATORY: Acute hypoxic respiratory failure, likely due to pulmonary emboli Atelectasis Possible pneumonia, likely due to Gram-positive/Gram-negative bacteria * Plan: incentive spirometry INFECTIOUS DISEASE: Sepsis, likely due to pneumonia HEMATOLOGY: Pulmonary emboli Ruled out DVT ENDOCRINE: History of gestational diabetes METABOLIC: Hypokalemia DIET: Regular diet DVT prophylax: Eliquis GI prophylaxis: Pepcid LINES/DEVICES ETT: Intubated on IV access: 2 peripheral 18 gauge Drips: Lovenox Disposition: Telemetry Family: Patients boyfriend updated at the bedside Case discussed with Dr. Iyer Plan discussed with: Other My Orders My Orders Orders - AISLINN SORIANO Procedure Category Date Status Time Ibuprofen Tablet PHA 03/11/25 In Process (Motrin Tablet) 12:00 Chest Xray 1 View XY 03/12/25 Resulted 08:13 Dietary Evaluation Review Comments: Nutrition Recommendation 1) Ensure High Protein 240ml BID 2) Monitor PO intake, lab values, weight trend, and I/O Expected Outcomes/Goals: To meet >75% estimated needs Fu 3-5 days AISLINN SORIANO Mar 12, 2025 11:00
[2025-03-12] MEDS ORDERED: APIX5TAB PO (17:19)
[2025-03-12] MEDS: APIXABAN 5 MG TAB PO SCH (21:57)
[2025-03-13 00:41] VITALS: BP 132/88; PULSE 78; RESP 18; TEMP 98.6; O2SAT 94
[2025-03-13 04:52] VITALS: BP 124/84; PULSE 86; RESP 18; TEMP 97.7; O2SAT 97
[2025-03-13 07:43] LABS: Hematocrit 26.1 % (36.0-46.0); Hemoglobin 8.6 g/dL (12.2-16.2); Mean Corpuscular Hemoglobin 27.0 pg (28.0-32.0); Mean Corpuscular Volume 82.2 fL (80.0-100.0); Nucleated Red Blood Cells % 0.1 %
[2025-03-13 08:01] LABS: Alanine Aminotransferase 10 U/L (7-40); Alkaline Phosphatase 106 U/L (46-116); Anion Gap 12 (5-15); BUN/Creatinine Ratio 27.5 (10.0-20.0); Blood Urea Nitrogen 14 mg/dL (9-23); Carbon Dioxide 22 mmol/L (20-31); Chloride 107 mmol/L (98-107); Glucose 82 mg/dL (74-106); Sodium 141 mmol/L (136-145); Total Protein 7.2 g/dL (5.7-8.2)
[2025-03-13 08:02] LABS: Albumin 3.8 g/dL (3.2-4.8)
[2025-03-13 08:04] LABS: Bilirubin, Total 0.2 mg/dL (0.2-1.0); Calcium 8.4 mg/dL (8.7-10.4); Potassium 3.4 mmol/L (3.5-5.1)
[2025-03-13 08:53] VITALS: BP 169/85; PULSE 70; RESP 60; TEMP 98; O2SAT 96
[2025-03-13 10:00] VITALS: O2SAT 98
[2025-03-13] MEDS: POTASSIUM CHL 20 Meq TABLET PO ONE (10:27)
--- NOTE | 2025-03-13 12:38 | DVHDSRES ---
Discharge Summary Date of Admission Resident Creating Document: KEYA GARY RESIDENT Mar 08, 2025 at 23:14 Date of Discharge: Mar 13, 2025 Labs/Diagnostic Data: Laboratory Results Test 03/13/25 07:00 03/11/25 03:03 03/10/25 10:55 03/10/25 02:15 White Blood Count 6.9 10^3/uL (4.4-10.8) Red Blood Count 3.18 10^6/uL (4.0-5.20) Hemoglobin 8.6 g/dL (12.2-16.2) Hematocrit 26.1 % (36.0-46.0) Mean Corpuscular Volume 82.2 fL (80.0-100.0) Mean Corpuscular Hemoglobin 27.0 pg (28.0-32.0) Mean Corpuscular Hemoglobin Concent 32.9 g/dL (32.0-36.0) Red Cell Distribution Width 17.4 % (11.8-14.3) Platelet Count 474 10^3/uL (140-450) Mean Platelet Volume 8.1 fL (6.9-10.8) Neutrophils (%) (Auto) 69.8 % (37.0-80.0) Lymphocytes (%) (Auto) 15.2 % (10.0-50.0) Monocytes (%) (Auto) 10.2 % (0.0-12.0) Eosinophils (%) (Auto) 4.3 % (0.0-7.0) Basophils (%) (Auto) 0.5 % (0.0-2.0) Neutrophils # (Auto) 4.8 10 ^3/uL (1.6-8.6) Lymphocytes # (Auto) 1.0 10 ^3/uL (0.4-5.4) Monocytes # (Auto) 0.7 10 ^3/uL (0-1.3) Eosinophils # (Auto) 0.3 10 ^3/uL (0-0.8) Basophils # (Auto) 0 10 ^3/uL (0-0.2) Nucleated Red Blood Cells 0.1 % Sodium Level 141 mmol/L (136-145) Potassium Level 3.4 mmol/L (3.5-5.1) Chloride Level 107 mmol/L (98-107) Carbon Dioxide Level 22 mmol/L (20-31) Anion Gap 12 (5-15) Blood Urea Nitrogen 14 mg/dL (9-23) Creatinine 0.51 mg/dL (0.550-1.02) Glomerular Filtration Rate Calc 129 mL/min (>90) BUN/Creatinine Ratio 27.5 (10.0-20.0) Serum Glucose 82 mg/dL (74-106) Calcium Level 8.4 mg/dL (8.7-10.4) Total Bilirubin 0.2 mg/dL (0.2-1.0) Aspartate Amino Transferase (AST) 11 U/L (13-40) Alanine Aminotransferase (ALT) 10 U/L (7-40) Alkaline Phosphatase 106 U/L (46-116) Total Protein 7.2 g/dL (5.7-8.2) Albumin 3.8 g/dL (3.2-4.8) Magnesium Level 2.0 mg/dL (1.6-2.6) Prothrombin Time 11.8 sec (9.3-11.8) Prothrombin Time INR 1.13 (0.9-1.15) Activated Partial Thromboplast Time 38.7 SEC (24.5-34.5) Hemoglobin A1c 5.7 % A1C (<5.7) Test 03/09/25 14:30 03/09/25 14:18 03/09/25 05:48 03/09/25 05:39 Urine Opiates Screen Pos (NEGATIVE) Urine Fentanyl Screen Pos (NEGATIVE) Urine Barbiturates Screen Neg (NEGATIVE) Urine Phencyclidine Screen Neg (NEGATIVE) Urine Amphetamines Screen Neg (NEGATIVE) Urine Benzodiazepines Screen Neg (NEGATIVE) Urine Cocaine Screen Neg (NEGATIVE) Urine Cannabinoids Screen Neg (NEGATIVE) Troponin I High Sensitivity < 3 ng/L (</=34) Anti-Nuclear Antibody Screen Positive (Negative) Blood Gas Specimen Type Arterial Blood Gas Sample Site Right radial Blood Gas Patient Temperature 37.0 Arterial Blood Date Drawn [id number] Arterial Blood pH 7.422 (7.350-7.450) Arterial Blood Partial Pressure CO2 31.7 mmHg (32.0-45.0) Arterial Blood Partial Pressure O2 99.9 mmHg (83.0-108.0) Arterial Blood HCO3 20.2 mmol/L (21.0-28.0) Arterial Blood Oxygen Saturation 96.9 % (94.0-98.0) Arterial Blood Base Excess -3.5 mmol/L (-2.0-3.0) Arterial Blood Oxyhemoglobin 96.1 % (94.0-98.0) Arterial Blood Carboxyhemoglobin 0.5 % (0.5-1.5) Arterial Blood Methemoglobin 0.3 % (0.0-1.5) Moo Test Yes Blood Gas Total Hemoglobin 10.30 g/dL (12.0-16.0) Blood Gas Liter Flow 3.00 Blood Gas Modality Nasal cannula FiO2 % 32.0 Thyroid Stimulating Hormone (TSH) 0.99 uIU/mL (0.55-4.78) Test 03/08/25 21:04 03/08/25 19:33 Urine Color Yellow (Yellow) Urine Clarity Clear (Clear) Urine pH 5.5 (5.0-9.0) Urine Specific [facility] 1.026 (1.001-1.035) Urine Protein 1+ (Negative) Urine Ketones Negative (Negative) Urine Blood Negative /uL (Negative) Urine Nitrite Negative (Negative) Urine Bilirubin Negative (Negative) Urine Urobilinogen Normal mg/dL (Negative) Urine Leukocyte Esterase Negative /uL (Negative) Urine RBC 1 /hpf (0 - 4) Urine Microscopic WBC 5 /HPF (0-5) Urine Squamous Epithelial Cells Few /hpf (<5) Urine Bacteria None seen /hpf (None Seen) Urine Mucus Few (None Seen) Urine Glucose Normal mg/dL (Normal) Lactic Acid Level 1.3 mmol/L (0.4-2.0) B-Type Natriuretic Peptide 23.07 pg/mL (0-100) Other Laboratory Tests 03/13/25 07:00 Brief Hx & Hospital Course: HISTORY OF PRESENT ILLNESS: This is a 29-year-old female with past medical history of gestational diabetes, preeclampsia (7 years back), came to the hospital due to chest pain and shortness of breath for 9 hours. Pain is localized at right-sided chest, radiating to the back and right shoulder, stabbing in nature, 10/10 in intensity, worsening with taking deep breaths, lying on the back and improved with sitting up. HOSPITAL COURSE: Patient admitted due to chest pain secondary to pulmonary embolism. CT angio 03/08/2025, shows pulmonary embolism in the right lower lobe pulmonary arterial system with no evidence of right ventricular heart strain. EKGs shows sinus tachycardia with no significant ST or T-wave changes . X-ray chest showed right lower lobe atelectasis and airspace disease. Started heparin drip and Radiology recommended medical management. Initial lab showed leukocytosis likely due to pulmonary emboli which resolved. Echo 03/10/2025 shows normal study with LVEF 50%. Bilateral lower extremity Venous duplex no evidence of venous thrombosis. During hospital stay, patient treated both acute and chronic medical condition and her symptoms significantly improved. CT lung also shows atelectasis which is significantly improved with incentive spirometry. On 03/13, patient was feeling good, and denies any fever, shortness of breaths, cough, chest pain, headache or any other acute distress. Continue Eliquis 10 mg p.o. twice a day until 03/19/2025 and then Eliquis 5 mg p.o. twice a day. Patient is hemodynamically stable for discharge. The patient has received maximum benefits from inpatient treatment. Time was given to answer patient questions and concerns in Layman terms. patient verbalized understanding and agree with treatment and follow-up. Patient was recommended to return to the ED if she experiences any worsening symptoms such as, but not limited to current symptoms. S/P recent section-stable,normal course. Follow- up with [facility] for Pap smear outpatient. Continue current home medication. Follow- up with discharge Clinic within 1 weeks on Saturday morning and follow up with PCP within 2 weeks after discharge . Patient educated and advised to resume home medication. DISCHARGE PLAN: Eliquis 10 mg b.i.d. for 7 days Eliquis 5 mg b.i.d. for 3 months Follow up with the PCP Discharge plannin minutes Case discussed with Dr. Cobian on, patient and nurse. Operations or Procedures ORDERING PHYSICIAN: KENYETTA PRAKASH DO PROCEDURE(s): PELUS - PELVIC REASON: SOB ORDER NUMBER(s): [id number], ACCESSION NUMBER(s): [id number] INDICATION: SOB TECHNIQUE: Multiple real-time grayscale transabdominal sonographic images along with color and duplex Doppler of the uterus and ovaries were obtained. COMPARISON: None FINDINGS: The uterus measures 9.13 x 7.07 x 6.83 cm. The endometrial stripe measures 8.57 mm. The right ovary measures 2.08 x 1.91 x 2.12 cm. Volume of the right ovary is 4.48 cc The left ovary measures 1.69 x 1.7 by 1.63 cm. Volume of the left ovary is 2.53 cc Subsequent color and duplex Doppler interrogation of the ovaries demonstrated symmetric vascular flow to both ovaries, though this does not exclude the possibility of torsion due to the dual blood supply. IMPRESSION: 1. Small amount of fluid in the endometrial canal. 2. Small amount of fluid in the cul-de-sac. RING PHYSICIAN: KENYETTA PRAKASH DO PROCEDURE(s): CXRP - CHEST PORTABLE REASON: SOB ORDER NUMBER(s): [id number], ACCESSION NUMBER(s): [id number] CHEST RADIOGRAPH Indication: SOB Technique: Single frontal view of the chest was obtained Comparison: None FINDINGS: Lines and Tubes: None Lungs: Airspace disease and atelectasis in the right lower lobe. Pleura: No effusion. No pneumothorax. Cardiomediastinal contours: Unremarkable Bones: No acute osseous abnormality. IMPRESSION: 1. Right lower lobe airspace disease and atelectasis. ATED BY: LG CAMPOS Jr., DO DICTATED DATE/TIME: 03/08/252143 ORDERING PHYSICIAN: KENYETTA PRAKASH DO PROCEDURE(s): CTACH - CT ANGIO CHEST CONTRAST REASON: sob post c section ORDER NUMBER(s): [id number], ACCESSION NUMBER(s): [id number] EXAM: CT CT ANGIO CHEST CONTRAST HISTORY: sob post c section TECHNIQUE: CT angiogram was performed. CT scans at this facility use dose modulation, iterative reconstruction, and/or weight based dosing when appropriate to reduce radiation dose to as low as reasonably achievable. Coronal and sagittal reformations and maximum intensity projection images were created from the transaxial source data by the staff nuclear medicine technologist and workstation, as well as 3-D volume rendered images with MIPs. COMPARISON: None FINDINGS: [LOWER NECK]: Unremarkable [LYMPH NODES/MEDIASTINUM]: No abnormal lymph nodes by CT size criteria [CARDIOVASCULAR]: Normal cardiac size. No pericardial effusion. No aneurysmal dilatation of the great vessels. No significant coronary artery calcifications. [PULMONARY ARTERIES]: Significant pulmonary arterial filling defect located of the distal right interlobar artery to segmental and subsegmental right lower lobe pulmonary arteries in its entirety. Prominence of the main pulmonary artery suggestive of pulmonary hypertension. Minimally elevated right heart pressures. Or right ventricular heart strain at this time. [UPPER ABDOMEN]: Cholecystectomy. [MUSCULOSKELETAL]: No acute fracture or aggressive focal osseous lesion. [CHEST WALL]: Unremarkable. [LUNG PARENCHYMA/PLEURAL SPACE]: Peribronchovascular and alveolar opacity in the right lower lobe without definitive bubbly lucencies at this time likely related to hypoperfusion and subsequent hypo ventilation of the right lower lobe. No pleural effusion or pneumothorax. IMPRESSION: 1. Significant pulmonary embolism in the right lower lobe pulmonary arterial system. 2. No evidence of right ventricular heart strain at this time. 3. Hypoperfusion and subsequent hypo ventilation of the right lower lobe. ATED BY: HERB HINKLE MD DICTATED DATE/TIME: 03/08/252103 ORDERING PHYSICIAN: AISLINN SORIANO RESDIIRENE PROCEDURE(s): BLDVT - BiLat Lower DVT REASON: Pulmonary emboli ORDER NUMBER(s): [id number], ACCESSION NUMBER(s): [id number] Bilateral lower extremity venous duplex Clinical History: Pulmonary emboli Comparison: None Findings: Duplex Doppler evaluation of the deep venous systems of both lower extremities from the common femoral veins to the popliteal veins including color Doppler and spectral/pulsed waveform analysis was performed. RIGHT SIDE: The common femoral vein demonstrates appropriate compressibility and waveform variability. There is compressibility/patency of the great saphenous vein at the proximal thigh. The femoral vein demonstrates appropriate compressibility and waveform variability. The deep femoral vein demonstrates appropriate compressibility and waveform variability. The popliteal vein demonstrates appropriate compressibility and waveform variability. There is normal compressibility at the tibioperoneal trunk. LEFT SIDE: The common femoral vein demonstrates appropriate compressibility and waveform variability. There is compressibility/patency of the great saphenous vein at the proximal thigh. The femoral vein demonstrates appropriate compressibility and waveform variability. The deep femoral vein demonstrates appropriate compressibility and waveform variability. The popliteal vein demonstrates appropriate compressibility and waveform variability. There is normal compressibility at the tibioperoneal trunk. IMPRESSION: No right or left femoropopliteal venous thrombosis. If clinical concern/symptoms persist or worsen, short-interval follow-up study is suggested. END IMPRESSION: ATED BY: OPAL MAO MD DICTATED DATE/TIME: 03/10/25 105 Condition at Discharge: Stable Final Diagnosis/Problems List Segmental Pulmonary emboli Acute hypoxic respiratory failure, likely due to pulmonary emboli Atelectasis Possible pneumonia, likely due to Gram-positive/Gram-negative bacteria Sepsis, likely due to pneumonia Ruled out DVT History of gestational diabetes Hypokalemia Obesity, BMI 34.9 Discharge Disposition: Home Discharge Instruct/Medications Scheduled Apixaban Base (Eliquis), 5 MG PO BID Apixaban Base (Eliquis), 10 MG PO BID Vit W/ Ferrous Fumara ( One Daily), 1 TAB PO DAILY, (Reported) Discharge Statement: "Patient was advised to return to the ER or call 911 if any headaches, dizziness, shortness of breath, chest pain, abdominal pain, bleeding, fevers, or worsening of medical condition. Patient was counseled about treatment plan, medications, possible side effects, patientverbalized understanding. All questions were answered to the best of my ability. This discharge took greater then 30 minutes in planning, reviewing documentation, counseling the patient, and discussing with other team members." ASSESSMENT ASSESSMENT Assessment KEYA GARY RESIDENT Mar 13, 2025 12:38
[2025-03-13 14:00] VITALS: BP 169/85; PULSE 70; RESP 18; TEMP 98; O2SAT 96
[2025-03-19] MEDS ORDERED: APIXABAN 5 MG TAB PO SCH (22:00)
== END 2025-03-13 14:55 | disposition home or self-care (01) | DRG 720 ==
LOC: ER 18:39 → OVERFLOW 23:14 → TELE-EAST 03-09 01:59 → ICU WEST 03-09 06:42 → TELE-EAST 03-11 23:57
PROVIDERS: ADMIT Internal Medicine Pulmonary Disease; ATTEND Internal Medicine Pulmonary Disease
DX: A41.50 Gram-negative sepsis, unspecified (principal); I26.99 Other pulmonary embolism without acute cor pulmonale; J96.01 Acute respiratory failure with hypoxia; J15.69 Pneumonia due to other Gram-negative bacteria; J15.9 Unspecified bacterial pneumonia; J98.11 Atelectasis; E87.6 Hypokalemia; E66.9 Obesity, unspecified; Z68.34 Body mass index [BMI] 34.0-34.9, adult; Z90.49 Acquired absence of other specified parts of digestive tract; Z86.718 Personal history of other venous thrombosis and embolism; Z88.3 Allergy status to other anti-infective agents
CPT/HCPCS: 36415; 36600; 71045; 71275; 76856; 80048; 80053; 80307; 81001; 82805; 83036; 83605; 83735; 83880; 84132; 84443; 84484; 85025; 85610; 85730; 86038; 86850; 86900; 86901; 87040; 87081; 87086; 93005; 93306; 93970; 94640; 96374; 96375; G0378; J1885; J1956; J2003; J2405; J3480